=== PATIENT | female | born 1990 | race Caucasian/White ===

== ENCOUNTER 2017-10-16 02:51 | Observation (INO) | payer BC, OTHER ==
[2017-10-16] MEDS ORDERED: Ondansetron 4 MG/2 ML SDV IVPUSH ONE (03:12)
[2017-10-16] MEDS ORDERED: Sodium Chloride 0.9% 1,000 ML IV ONE (03:13)
[2017-10-16] MEDS ORDERED: Alum Hydrox/Mag Hydrox/Simeth 15 ML, Metoclopramide 5 MG, Lidocaine 2% 5 ML PO ONE ×3 (03:15)
[2017-10-16] MEDS ORDERED: Pantoprazole 40 MG Vial IVPUSH ONE (03:16)
[2017-10-16 03:58] LABS: CHLORIDE,CL 108 mmol/L (98-110); SODIUM,NA 143 mmol/L (136-146)
--- NOTE | 2017-10-16 05:59 | EDM.PDOC ---
ED HPI GENERAL MEDICAL PROBLEM - General Chief Complaint: Abdominal Pain Stated Complaint: POSSIBLE BLEEDING ORSER Time Seen by Provider: 10/16/17 05:47 - History of Present Illness INITIAL COMMENTS - FREE TEXT/NARRATIVE: HISTORY AND PHYSICAL: History of present illness: Patient's 26-year-old female presents for concern of vomiting she states she's been vomiting for the last 4-5 days multiple time she states she had 4-5 episodes of coffee-ground material she denies gross blood she denies melena or hematochezia she had abdominal discomfort that's poorly localized. She denies chest pain shortness of breath dizziness or other concern she denies Review of systems: As per history of present illness and below otherwise all systems reviewed and negative. Past medical history: As per history of present illness and as reviewed below otherwise noncontributory. Surgical history: As per history of present illness and as reviewed below otherwise noncontributory. Social history: No reported history of drug or alcohol abuse. Family history: As per history of present illness and as reviewed below otherwise noncontributory. Physical exam: HEENT: Atraumatic, normocephalic, pupils reactive, negative for conjunctival pallor or scleral icterus, mucous membranes dry, throat clear, neck supple, nontender, trachea midline. Lungs: Clear to auscultation, breath sounds equal bilaterally, chest nontender. Heart: S1S2, regular, negative for clicks, rubs, or JVD. Abdomen: Soft, nondistended, nontender. Negative for masses or hepatosplenomegaly. Negative for costovertebral tenderness. Pelvis: Stable nontender. Genitourinary: Deferred. Rectal: Deferred. Extremities: Atraumatic, negative for cords or calf pain. Neurovascular unremarkable. Neuro: Awake, alert, oriented. Cranial nerves II through XII unremarkable. Cerebellum unremarkable. Motor and sensory unremarkable throughout. Exam nonfocal. Diagnostics: CBC CMP PT/INR UA UCG urine drug screen CT abdomen and pelvis Therapeutics: Normal saline 1 L bolus Zofran 4 mg IV Protonix 80 mg IV Impression: #1 hyperemesis #2 gastritis rule out peptic ulcer disease #3 dehydration Definitive disposition and diagnosis as appropriate pending reevaluation and review of above. epigastric Pain Score (Numeric/FACES): 10 - Related Data Allergies Allergy/AdvReac Type Severity Reaction Status Date / Time No Known Allergies Allergy Verified 10/16/17 02:55 Home Meds: Home Meds . [No Known Home Meds] 10/16/17 [History] Past Medical History - Past Health History Medical/Surgical History: Denies Medical/Surgical History Gastrointestinal History: Reports: PUD - Past Surgical History GI Surgical History: Reports: Cholecystectomy Social & Family History - Family History Family Medical History: Noncontributory - Tobacco Use Smoking Status *Q: Current Every Day Smoker Years of Tobacco use: 1 Packs/Tins Daily: 1 - Recreational Drug Use Recreational Drug Use: No ED ROS GENERAL - Review of Systems Review Of Systems: ROS reveals no pertinent complaints other than HPI. ED EXAM, GENERAL - Physical Exam Exam: See Below (See dictation) Course - Vital Signs Last Recorded V/S: Last Vital Signs Temp 36.8 C 10/16/17 02:51 Pulse 114 H 10/16/17 02:51 Resp 24 H 10/16/17 02:51 BP 125/65 10/16/17 02:51 Pulse Ox 99 10/16/17 02:51 - Orders/Labs/Meds Orders: Active Orders 24 hr Category Date Time Status Abdomen Pelvis wo Cont [CT] Stat Exams 10/16/17 05:12 Taken Chest 1V Frontal [CR] Stat Exams 10/16/17 03:15 Taken Labs: Laboratory Tests 10/16/17 10/16/17 10/16/17 Range/Units 03:10 03:10 03:10 WBC 10.08 (4.0-11.0) K/uL RBC 5.00 (4.30-5.90) M/uL Hgb 14.8 (12.0-16.0) g/dL Hct 41.7 (36.0-46.0) % MCV 83.4 (80.0-98.0) fL MCH 29.6 (27.0-32.0) pg MCHC 35.5 (31.0-37.0) g/dL RDW Std Deviation 39.0 (28.0-62.0) fl RDW Coeff of [place] 13 (11.0-15.0) % Plt Count 219 (150-400) K/uL MPV 10.40 (7.40-12.00) fL Neut % (Auto) 77.7 (48.0-80.0) % Lymph % (Auto) 18.2 (16.0-40.0) % [place] % (Auto) 2.5 (0.0-15.0) % Eos % (Auto) 1.5 (0.0-7.0) % Baso % (Auto) 0.1 (0.0-1.5) % Neut # (Auto) 7.8 H (1.4-5.7) K/uL Lymph # (Auto) 1.8 (0.6-2.4) K/uL [place] # (Auto) 0.3 (0.0-0.8) K/uL Eos # (Auto) 0.2 (0.0-0.7) K/uL Baso # (Auto) 0.0 (0.0-0.1) K/uL INR 0.94 Sodium 143 (136-146) mmol/L Potassium 3.1 L (3.5-5.1) mmol/L Chloride 108 (98-110) mmol/L Carbon Dioxide 24 (21-31) mmol/L BUN 15 (6.0-23.0) mg/dL Creatinine 0.9 (0.6-1.5) mg/dL Est Cr Clr Drug Dosing 74.26 mL/min Estimated GFR (MDRD) > 60.0 ml/min Glucose 98 (60-110) mg/dL Calcium 9.4 (8.8-10.8) mg/dL Total Bilirubin 0.8 (0.1-1.5) mg/dL AST 58 H (5-40) IU/L ALT 71 H (8-54) IU/L Alkaline Phosphatase 83 (40-150) Troponin I (0.0-0.29) NG/ML Total Protein 7.7 (6.0-8.0) g/dL Albumin 4.6 (3.5-5.0) g/dL Globulin 3.1 (2.0-3.5) g/dL Albumin/Globulin Ratio 1.5 (1.3-2.8) Lipase (7-80) U/L Urine Color Urine Appearance Urine pH (5.0-8.0) Ur Specific [place] (1.001-1.035) Urine Protein (NEGATIVE) mg/dL Urine Glucose (UA) (NEGATIVE) mg/dL Urine Ketones (NEGATIVE) mg/dL Urine Occult Blood (NEGATIVE) Urine Nitrite (NEGATIVE) Urine Bilirubin (NEGATIVE) Urine Urobilinogen (<2.0) EU/dL Ur Leukocyte Esterase (NEGATIVE) Urine RBC (0-2/HPF) Urine WBC (0-5/HPF) Ur Epithelial Cells (NONE-FEW) Calcium Oxalate Crystal (NEGATIVE) Uric Acid Crystals (NEGATIVE) Amorphous Sediment (NEGATIVE) Urine Bacteria (NEGATIVE) Urine Mucus (NONE-MOD) Urine HCG, Qual (NEGATIVE) Urine Opiates Screen (NEGATIVE) Ur Oxycodone Screen (NEGATIVE) Urine Methadone Screen (NEGATIVE) Ur Barbiturates Screen (NEGATIVE) Ur Phencyclidine Scrn (NEGATIVE) Ur Amphetamine Screen (NEGATIVE) U Methamphetamines Scrn (NEGATIVE) U Benzodiazepines Scrn (NEGATIVE) U Cocaine Metab Screen (NEGATIVE) U Marijuana (THC) Screen (NEGATIVE) 10/16/17 10/16/17 10/16/17 Range/Units 03:10 04:00 04:00 WBC (4.0-11.0) K/uL RBC (4.30-5.90) M/uL Hgb (12.0-16.0) g/dL Hct (36.0-46.0) % MCV (80.0-98.0) fL MCH (27.0-32.0) pg MCHC (31.0-37.0) g/dL RDW Std Deviation (28.0-62.0) fl RDW Coeff of [place] (11.0-15.0) % Plt Count (150-400) K/uL MPV (7.40-12.00) fL Neut % (Auto) (48.0-80.0) % Lymph % (Auto) (16.0-40.0) % [place] % (Auto) (0.0-15.0) % Eos % (Auto) (0.0-7.0) % Baso % (Auto) (0.0-1.5) % Neut # (Auto) (1.4-5.7) K/uL Lymph # (Auto) (0.6-2.4) K/uL [place] # (Auto) (0.0-0.8) K/uL Eos # (Auto) (0.0-0.7) K/uL Baso # (Auto) (0.0-0.1) K/uL INR Sodium (136-146) mmol/L Potassium (3.5-5.1) mmol/L Chloride (98-110) mmol/L Carbon Dioxide (21-31) mmol/L BUN (6.0-23.0) mg/dL Creatinine (0.6-1.5) mg/dL Est Cr Clr Drug Dosing mL/min Estimated GFR (MDRD) ml/min Glucose (60-110) mg/dL Calcium (8.8-10.8) mg/dL Total Bilirubin (0.1-1.5) mg/dL AST (5-40) IU/L ALT (8-54) IU/L Alkaline Phosphatase (40-150) Troponin I < 0.10 (0.0-0.29) NG/ML Total Protein (6.0-8.0) g/dL Albumin (3.5-5.0) g/dL Globulin (2.0-3.5) g/dL Albumin/Globulin Ratio (1.3-2.8) Lipase 50 (7-80) U/L Urine Color Urine Appearance Urine pH (5.0-8.0) Ur Specific [place] (1.001-1.035) Urine Protein (NEGATIVE) mg/dL Urine Glucose (UA) (NEGATIVE) mg/dL Urine Ketones (NEGATIVE) mg/dL Urine Occult Blood (NEGATIVE) Urine Nitrite (NEGATIVE) Urine Bilirubin (NEGATIVE) Urine Urobilinogen (<2.0) EU/dL Ur Leukocyte Esterase (NEGATIVE) Urine RBC (0-2/HPF) Urine WBC (0-5/HPF) Ur Epithelial Cells (NONE-FEW) Calcium Oxalate Crystal (NEGATIVE) Uric Acid Crystals (NEGATIVE) Amorphous Sediment (NEGATIVE) Urine Bacteria (NEGATIVE) Urine Mucus (NONE-MOD) Urine HCG, Qual NEGATIVE (NEGATIVE) Urine Opiates Screen NEGATIVE (NEGATIVE) Ur Oxycodone Screen NEGATIVE (NEGATIVE) Urine Methadone Screen NEGATIVE (NEGATIVE) Ur Barbiturates Screen NEGATIVE (NEGATIVE) Ur Phencyclidine Scrn NEGATIVE (NEGATIVE) Ur Amphetamine Screen NEGATIVE (NEGATIVE) U Methamphetamines Scrn NEGATIVE (NEGATIVE) U Benzodiazepines Scrn NEGATIVE (NEGATIVE) U Cocaine Metab Screen NEGATIVE (NEGATIVE) U Marijuana (THC) Screen NEGATIVE (NEGATIVE) 10/16/17 Range/Units 04:08 WBC (4.0-11.0) K/uL RBC (4.30-5.90) M/uL Hgb (12.0-16.0) g/dL Hct (36.0-46.0) % MCV (80.0-98.0) fL MCH (27.0-32.0) pg MCHC (31.0-37.0) g/dL RDW Std Deviation (28.0-62.0) fl RDW Coeff of [place] (11.0-15.0) % Plt Count (150-400) K/uL MPV (7.40-12.00) fL Neut % (Auto) (48.0-80.0) % Lymph % (Auto) (16.0-40.0) % [place] % (Auto) (0.0-15.0) % Eos % (Auto) (0.0-7.0) % Baso % (Auto) (0.0-1.5) % Neut # (Auto) (1.4-5.7) K/uL Lymph # (Auto) (0.6-2.4) K/uL [place] # (Auto) (0.0-0.8) K/uL Eos # (Auto) (0.0-0.7) K/uL Baso # (Auto) (0.0-0.1) K/uL INR Sodium (136-146) mmol/L Potassium (3.5-5.1) mmol/L Chloride (98-110) mmol/L Carbon Dioxide (21-31) mmol/L BUN (6.0-23.0) mg/dL Creatinine (0.6-1.5) mg/dL Est Cr Clr Drug Dosing mL/min Estimated GFR (MDRD) ml/min Glucose (60-110) mg/dL Calcium (8.8-10.8) mg/dL Total Bilirubin (0.1-1.5) mg/dL AST (5-40) IU/L ALT (8-54) IU/L Alkaline Phosphatase (40-150) Troponin I (0.0-0.29) NG/ML Total Protein (6.0-8.0) g/dL Albumin (3.5-5.0) g/dL Globulin (2.0-3.5) g/dL Albumin/Globulin Ratio (1.3-2.8) Lipase (7-80) U/L Urine Color YELLOW Urine Appearance CLEAR Urine pH 6.0 (5.0-8.0) Ur Specific [place] >= 1.030 (1.001-1.035) Urine Protein NEGATIVE (NEGATIVE) mg/dL Urine Glucose (UA) NEGATIVE (NEGATIVE) mg/dL Urine Ketones NEGATIVE (NEGATIVE) mg/dL Urine Occult Blood NEGATIVE (NEGATIVE) Urine Nitrite NEGATIVE (NEGATIVE) Urine Bilirubin SMALL H (NEGATIVE) Urine Urobilinogen 1.0 (<2.0) EU/dL Ur Leukocyte Esterase NEGATIVE (NEGATIVE) Urine RBC 0-2 (0-2/HPF) Urine WBC 2-4 (0-5/HPF) Ur Epithelial Cells FEW (NONE-FEW) Calcium Oxalate Crystal RARE (NEGATIVE) Uric Acid Crystals (NEGATIVE) Amorphous Sediment FEW (NEGATIVE) Urine Bacteria FEW (NEGATIVE) Urine Mucus FEW (NONE-MOD) Urine HCG, Qual (NEGATIVE) Urine Opiates Screen (NEGATIVE) Ur Oxycodone Screen (NEGATIVE) Urine Methadone Screen (NEGATIVE) Ur Barbiturates Screen (NEGATIVE) Ur Phencyclidine Scrn (NEGATIVE) Ur Amphetamine Screen (NEGATIVE) U Methamphetamines Scrn (NEGATIVE) U Benzodiazepines Scrn (NEGATIVE) U Cocaine Metab Screen (NEGATIVE) U Marijuana (THC) Screen (NEGATIVE) Meds: Medications Discontinued Medications Generic Name Dose Route Start Last Admin Trade Name Pramodq PRN Reason Stop Dose Admin Al Hydroxide/Mg Hydroxide 15 0 ml 10/16/17 03:15 10/16/17 03:25 ml/ Metoclopramide HCl 5 mg/ PO 10/16/17 03:16 25 each Lidocaine HCl 5 ml ONETIME ONE Administration Sodium Chloride 1,000 mls @ 999 mls/hr 10/16/17 03:13 10/16/17 03:00 Normal Saline IV 10/16/17 04:13 999 mls/hr STAT ONE Administration Ondansetron HCl 4 mg 10/16/17 03:12 10/16/17 03:17 Zofran IVPUSH 10/16/17 03:13 4 mg ONETIME ONE Administration Pantoprazole Sodium 80 mg 10/16/17 03:16 10/16/17 03:30 Protonix Iv IVPUSH 10/16/17 03:17 80 mg .BOLUS ONE Administration Departure - Departure Time of Disposition: 05:58 Disposition: Refer to Observation Condition: Good Clinical Impression: Vomiting, Dehydration, Gastritis - Discharge Information Referrals: PCP,None [Primary Care Provider] - - My Orders Last 24 Hours: My Active Orders 10/16/17 03:15 Chest 1V Frontal [CR] Stat 10/16/17 05:12 Abdomen Pelvis wo Cont [CT] Stat - Assessment/Plan Last 24 Hours: My Active Orders 10/16/17 03:15 Chest 1V Frontal [CR] Stat 10/16/17 05:12 Abdomen Pelvis wo Cont [CT] Stat
[2017-10-16] MEDS ORDERED: Pantoprazole 80 MG in Sodium Chloride 0.9% 100 ML IV SCH (06:00)
[2017-10-16] MEDS ORDERED: Potassium Chloride 40 MEQ in Sodium Chloride 0.9% 480 ML IV ONE (06:49)
[2017-10-16] MEDS ORDERED: Promethazine 25 MG/ML SDV IM PRN (06:49)
[2017-10-16] MEDS: Morphine 2 MG/ML Syringe IVPUSH PRN ×2 (07:43→21:03)
[2017-10-16] MEDS: Ondansetron 4 MG/2 ML SDV IVPUSH PRN ×3 (08:02→21:02)
[2017-10-16] MEDS ORDERED: Sodium Chloride 0.9% with KCl 1,000 ML IV ONE ×3 (09:17→17:00)
--- NOTE | 2017-10-16 12:29 | PCM.HP ---
H&P History of Present Illness - General Admit Problem/Dx: Admission Diagnosis/Problem Admission Diagnosis/Problem Vomiting - History of Present Illness Initial Comments - Free Text/Narative: 26 yo female with pmh of gastric ulcers who presents with epigastric abdominal pain, nausea and vomiting. She reports some dark stools yesterday. She denies any fevers, or chills epigastric Pain Score (Numeric/FACES): 8 - Related Data Allergies/Adverse Reactions: Allergies Allergy/AdvReac Type Severity Reaction Status Date / Time Penicillins Allergy Hives Verified 10/16/17 08:12 Home Medications: Home Meds Pantoprazole Sodium [Protonix] 40 mg PO DAILY 30 Days #30 tablet. 10/17/17 [Rx ] Sucralfate [Carafate] 1 gm PO Q6HR 30 Days #120 tablet 10/17/17 [Rx] Past Medical History - Past Health History Medical/Surgical History: Denies Medical/Surgical History Gastrointestinal History: Reports: [employer] History: Reports: Other OB/BYN History: x2 - Infectious Disease History Infectious Disease History: Reports: Chicken Pox - Past Surgical History Head Surgeries/Procedures: Reports: None GI Surgical History: Reports: Appendectomy, Cholecystectomy Social & Family History - Family History Family Medical History: Noncontributory - Tobacco Use Smoking Status *Q: Current Every Day Smoker Years of Tobacco use: 1 Packs/Tins Daily: 0.2 Second Hand Smoke Exposure: No - Caffeine Use Caffeine Use: Reports: Coffee, Energy Drinks, Soda, Tea - Recreational Drug Use Recreational Drug Use: No H&P Review of Systems - Review of Systems: Review Of Systems: ROS reveals no pertinent complaints other than HPI. Exam - Exam Exam: See Below - Vital Signs Vital Signs: Last Vital Signs Temp 36.6 C 10/16/17 08:17 Pulse 95 10/16/17 08:17 Resp 12 10/16/17 08:17 BP 99/61 10/16/17 08:17 Pulse Ox 99 10/16/17 08:17 Weight: 74.979 kg - Exam General: Alert, Oriented HEENT: Mucosa Moist & [place] Lungs: Clear to Auscultation, Normal Respiratory Effort Cardiovascular: Regular Rate, Regular Rhythm GI/Abdominal Exam: Soft, Non-Tender Extremities: No Pedal Edema Skin: Warm, Dry, Intact - Patient Data Result Diagrams: 10/17/17 05:18 10/17/17 05:18 *Q Meaningful Use (ADM) - VTE *Q VTE Criteria *Q: - Stroke *Q Stroke Criteria *Q: - AMI *Q AMI Criteria *Q: Problem List Initiated/Reviewed/Updated: Yes Orders Last 24hrs: Active Orders 24 hr Category Date Time Status Antiembolic Devices [RC] PER UNIT ROUTINE Care 10/16/17 12:23 Ordered Intake and Output [RC] QSHIFT Care 10/16/17 12:23 Ordered Oxygen Therapy [RC] PRN Care 10/16/17 12:23 Ordered Up ad Lizzette [RC] ASDIRECTED Care 10/16/17 12:23 Ordered VTE/DVT Education [RC] PER UNIT ROUTINE Care 10/16/17 12:23 Ordered Vital Signs [RC] Q4H Care 10/16/17 12:23 Ordered Advance Diet Instructions [DIET] Diet 10/16/17 Dinner Ordered Nothing per Oral Now Diet [DIET] Diet 10/16/17 Lunch Active CBC WITH AUTO DIFF [HEME] AM Lab 10/17/17 05:11 Ordered COMPREHENSIVE METABOLIC PN,CMP [CHEM] AM Lab 10/17/17 05:11 Ordered Morphine Med 10/16/17 06:49 Active 2 mg IVPUSH Q3H PRN Ondansetron [Zofran] Med 10/16/17 06:49 Active 4 mg IVPUSH Q4H PRN Promethazine [Phenergan] Med 10/16/17 06:49 Active 25 mg IM Q6H PRN Sodium Chloride 0.9% with KCl [Normal Saline with 40 Med 10/16/17 09:17 Active mEq KCl] 1,000 ml IV ONETIME Sodium Chloride 0.9% with KCl [Normal Saline with 40 Med 10/16/17 17:00 Active mEq KCl] 1,000 ml IV ONETIME Sequential Compression Device [OM.PC] Per Unit Routine Oth 10/16/17 12:23 Ordered Resuscitation Status Routine Resus Stat 10/16/17 12:23 Ordered Medication Orders Pantoprazole Sodium 80 mg/ (Sodium Chloride) 100 mls @ 10 mls/hr IV .Continuous ALICIA Last Admin: 10/16/17 07:49 Dose: 10 mls/hr Potassium Chloride/Sodium Chloride (Normal Saline With 40 Meq Kcl) 1,000 mls @ 125 mls/hr IV ONETIME ONE Stop: 10/16/17 17:16 Last Admin: 10/16/17 09:57 Dose: 125 mls/hr Potassium Chloride/Sodium Chloride (Normal Saline With 40 Meq Kcl) 1,000 mls @ 125 mls/hr IV ONETIME ONE Stop: 10/17/17 00:59 Morphine Sulfate (Morphine) 2 mg IVPUSH Q3H PRN PRN Reason: Pain Last Admin: 10/16/17 07:43 Dose: 2 mg Ondansetron HCl (Zofran) 4 mg IVPUSH Q4H PRN PRN Reason: Nausea/Vomiting Last Admin: 10/16/17 08:02 Dose: 4 mg Promethazine HCl (Phenergan) 25 mg IM Q6H PRN PRN Reason: Nausea/Vomiting Assessment/Plan Comment:: 26 yo female presenting with signs and symptoms concerning for gastric ulcer. She has been started on a protonix drip. Patient is requesting discharge. I advised patien that we need to ensuring she is tolerating an oral diet before discharge. We will advance diet as tolerated.
[2017-10-16] MEDS: Sucralfate Suspension 1 GM/10 ML Cup PO SCH ×2 (13:02→18:12)
[2017-10-16] MEDS: Pantoprazole 40 MG Vial IV SCH (16:20)
[2017-10-16] MEDS ORDERED: Acetaminophen 325 MG Tab PO PRN (17:59)
[2017-10-17] MEDS: Sucralfate Suspension 1 GM/10 ML Cup PO SCH ×3 (02:01→13:33)
[2017-10-17] MEDS: Morphine 2 MG/ML Syringe IVPUSH PRN ×2 (02:01→07:30)
[2017-10-17] MEDS: Ondansetron 4 MG/2 ML SDV IVPUSH PRN ×2 (02:02→07:30)
[2017-10-17] MEDS: Pantoprazole 40 MG Vial IV SCH (03:40)
[2017-10-17 05:58] LABS: CHLORIDE,CL 115 mmol/L (98-110); SODIUM,NA 139 mmol/L (136-146)
--- NOTE | 2017-10-17 11:30 | PCM.DCSUM1 ---
<Gaurang Horta Z - Last Filed: 10/20/17 23:21> Discharge Summary - Hospital Course HPI Initial Comments: Discharge Summary Date of admission: 10/16/17 Date of discharge: 10/17/17 Admitting diagnosis: #1. Nausea/vomiting, abdominal pain, inability to tolerate diet secondary to likely peptic ulcer disease #2. Past medical history significant for peptic ulcer disease #3. #4. #5. Discharge diagnoses: #1. Nausea/vomiting, abdominal pain resolving, secondary likely to peptic ulcer disease #2. Mild elevation of LFTs likely secondary to peptic ulcer disease #3. #4. #5. Consultations: None Procedures: None Hospitalization course: Patient was admitted secondary to nausea, vomiting, abdominal pain, inability to tolerate by mouth intake. Patient was put on a PPI drip, and given IV Carafate and diet was progressed as tolerated. Patient's symptoms are controlled with Zofran. Patient did well overnight, was able to tolerate her progression and diet. Patient was no longer nauseous was able to have a regular diet without too much discomfort. Patient was then determined stable enough to be discharged on Protonix 40 mg daily and Carafate every 6 hours for 30 days. Have her follow-up assessment with Dr. Godfrey Damon for a possible EGD and establish care with a primary care physician. Disposition on discharge: Home Condition on discharge: Stable Discharge medications: Protonix 40 mg daily, Carafate every 6 hours for 30 days Follow-up instructions: Follow-up assessment with Dr. Godfrey Dmaon for possible EGD, establish care with primary care physician. - Discharge Data Discharge Date: 10/17/17 Discharge Disposition: Home, Self-Care 01 Condition: Good - Patient Instructions Diet: Usual Diet as Tolerated Activity: As Tolerated Driving: Do Not Drive Showering/Bathing: May Shower - Discharge Plan Prescriptions/Med Rec: Sucralfate [Carafate] 1 gm PO Q6HR 30 Days #120 tablet Pantoprazole Sodium [Protonix] 40 mg PO DAILY 30 Days #30 tablet. Home Medications: Home Meds Pantoprazole Sodium [Protonix] 40 mg PO DAILY 30 Days #30 tablet. 10/17/17 [Rx ] Sucralfate [Carafate] 1 gm PO Q6HR 30 Days #120 tablet 10/17/17 [Rx] Patient Handouts: Abdominal Pain, Adult, [id number], Sucralfate tablets, Pantoprazole tablets Referrals: Godfrey Damon MD [Physician] - 11/01/17 2:15 pm Gaurang Horta MD [Resident] - 11/04/17 2:30 pm - Discharge Summary/Plan Comment DC Time >30 min.: No - Patient Data Vitals - Most Recent: Last Vital Signs Temp 36.8 C 10/17/17 08:00 Pulse 74 10/17/17 08:00 Resp 16 10/17/17 08:00 BP 111/72 10/17/17 08:00 Pulse Ox 97 10/17/17 08:00 Weight - Most Recent: 74.979 kg I&O - Last 24 hours: Intake & Output 10/16/17 10/17/17 10/17/17 22:59 06:59 14:59 Intake Total 2033 1200 Output Total 300 1050 Balance 1733 150 Lab Results - Last 24 hrs: Laboratory Results - last 24 hr 10/16/17 10/17/17 10/17/17 Range/Units 17:10 05:18 05:18 WBC 6.55 (4.0-11.0) K/uL RBC 4.20 L (4.30-5.90) M/uL Hgb 12.6 12.4 (12.0-16.0) g/dL Hct 35.2 L (36.0-46.0) % MCV 83.8 (80.0-98.0) fL MCH 29.5 (27.0-32.0) pg MCHC 35.2 (31.0-37.0) g/dL RDW Std Deviation 39.9 (28.0-62.0) fl RDW Coeff of Clayton 13 (11.0-15.0) % Plt Count 169 (150-400) K/uL MPV 10.10 (7.40-12.00) fL Neut % (Auto) 52.8 (48.0-80.0) % Lymph % (Auto) 36.8 (16.0-40.0) % Coles % (Auto) 5.8 (0.0-15.0) % Eos % (Auto) 4.3 (0.0-7.0) % Baso % (Auto) 0.3 (0.0-1.5) % Neut # (Auto) 3.5 (1.4-5.7) K/uL Lymph # (Auto) 2.4 (0.6-2.4) K/uL Coles # (Auto) 0.4 (0.0-0.8) K/uL Eos # (Auto) 0.3 (0.0-0.7) K/uL Baso # (Auto) 0.0 (0.0-0.1) K/uL Nucleated RBC % 0.0 /100WBC Nucleated RBCs # 0 K/uL Sodium 139 (136-146) mmol/L Potassium 3.7 (3.5-5.1) mmol/L Chloride 115 H (98-110) mmol/L Carbon Dioxide 20 L (21-31) mmol/L BUN 6 (6.0-23.0) mg/dL Creatinine 0.8 (0.6-1.5) mg/dL Est Cr Clr Drug Dosing 83.54 mL/min Estimated GFR (MDRD) > 60.0 ml/min Glucose 89 (60-110) mg/dL Calcium 8.1 L (8.8-10.8) mg/dL Total Bilirubin 0.7 (0.1-1.5) mg/dL AST 213 H (5-40) IU/L ALT 336 H (8-54) IU/L Alkaline Phosphatase 91 (40-150) Total Protein 5.3 L (6.0-8.0) g/dL Albumin 3.3 L (3.5-5.0) g/dL Globulin 2.0 (2.0-3.5) g/dL Albumin/Globulin Ratio 1.7 (1.3-2.8) Amylase (10-90) U/L Lipase (7-80) U/L 10/17/17 Range/Units 05:18 WBC (4.0-11.0) K/uL RBC (4.30-5.90) M/uL Hgb (12.0-16.0) g/dL Hct (36.0-46.0) % MCV (80.0-98.0) fL MCH (27.0-32.0) pg MCHC (31.0-37.0) g/dL RDW Std Deviation (28.0-62.0) fl RDW Coeff of Clayton (11.0-15.0) % Plt Count (150-400) K/uL MPV (7.40-12.00) fL Neut % (Auto) (48.0-80.0) % Lymph % (Auto) (16.0-40.0) % Coles % (Auto) (0.0-15.0) % Eos % (Auto) (0.0-7.0) % Baso % (Auto) (0.0-1.5) % Neut # (Auto) (1.4-5.7) K/uL Lymph # (Auto) (0.6-2.4) K/uL Coles # (Auto) (0.0-0.8) K/uL Eos # (Auto) (0.0-0.7) K/uL Baso # (Auto) (0.0-0.1) K/uL Nucleated RBC % /100WBC Nucleated RBCs # K/uL Sodium (136-146) mmol/L Potassium (3.5-5.1) mmol/L Chloride (98-110) mmol/L Carbon Dioxide (21-31) mmol/L BUN (6.0-23.0) mg/dL Creatinine (0.6-1.5) mg/dL Est Cr Clr Drug Dosing mL/min Estimated GFR (MDRD) ml/min Glucose (60-110) mg/dL Calcium (8.8-10.8) mg/dL Total Bilirubin (0.1-1.5) mg/dL AST (5-40) IU/L ALT (8-54) IU/L Alkaline Phosphatase (40-150) Total Protein (6.0-8.0) g/dL Albumin (3.5-5.0) g/dL Globulin (2.0-3.5) g/dL Albumin/Globulin Ratio (1.3-2.8) Amylase 35 (10-90) U/L Lipase 23 (7-80) U/L MER Results - Last 24 hrs: Microbiology 10/16/17 19:30 Stool Occult Blood (MER) - Final Stool / Feces NEGATIVE OCCULT BLOOD Med Orders - Current: Current Medications Acetaminophen (Tylenol) 650 mg PO Q6H PRN PRN Reason: Pain Last Admin: 10/16/17 18:12 Dose: 650 mg Morphine Sulfate (Morphine) 2 mg IVPUSH Q3H PRN PRN Reason: Pain Last Admin: 10/17/17 07:30 Dose: 2 mg Ondansetron HCl (Zofran) 4 mg IVPUSH Q4H PRN PRN Reason: Nausea/Vomiting Last Admin: 10/17/17 07:30 Dose: 4 mg Pantoprazole Sodium (Protonix Iv) 80 mg IV Q12H ALICIA Last Admin: 10/17/17 03:40 Dose: 80 mg Promethazine HCl (Phenergan) 25 mg IM Q6H PRN PRN Reason: Nausea/Vomiting Sucralfate (Carafate) 1 gm PO Q6H ALICIA Last Admin: 10/17/17 06:48 Dose: 1 gm Discontinued Medications Al Hydroxide/Mg Hydroxide 15 ml/ Metoclopramide HCl 5 mg/Lidocaine HCl 5 ml 0 ml PO ONETIME ONE Stop: 10/16/17 03:16 Last Admin: 10/16/17 03:25 Dose: 25 each Sodium Chloride (Normal Saline) 1,000 mls @ 999 mls/hr IV STAT ONE Stop: 10/16/17 04:13 Last Admin: 10/16/17 03:00 Dose: 999 mls/hr Pantoprazole Sodium 80 mg/ (Sodium Chloride) 100 mls @ 10 mls/hr IV .Continuous ALICIA Last Admin: 10/16/17 07:49 Dose: 10 mls/hr Potassium Chloride 40 meq/ (Sodium Chloride) 500 mls @ 125 mls/hr IV ONETIME ONE Stop: 10/16/17 10:48 Last Admin: 10/16/17 07:36 Dose: Not Given Potassium Chloride 40 meq/ (Sodium Chloride) 1,020 mls @ 125 mls/hr IV ONETIME ONE Stop: 10/16/17 15:41 Last Admin: 10/16/17 09:44 Dose: Not Given Potassium Chloride/Sodium Chloride (Normal Saline With 40 Meq Kcl) 1,000 mls @ 125 mls/hr IV ONETIME ONE Stop: 10/16/17 17:16 Last Admin: 10/16/17 09:57 Dose: 125 mls/hr Potassium Chloride/Sodium Chloride (Normal Saline With 40 Meq Kcl) 1,000 mls @ 125 mls/hr IV ONETIME ONE Stop: 10/17/17 00:59 Last Admin: 10/16/17 17:51 Dose: 125 mls/hr Ondansetron HCl (Zofran) 4 mg IVPUSH ONETIME ONE Stop: 10/16/17 03:13 Last Admin: 10/16/17 03:17 Dose: 4 mg Pantoprazole Sodium (Protonix Iv) 80 mg IVPUSH .BOLUS ONE Stop: 10/16/17 03:17 Last Admin: 10/16/17 03:30 Dose: 80 mg *Q Meaningful Use (DIS) - VTE *Q VTE Criteria *Q: - Stroke *Q Stroke Criteria *Q: - AMI *Q AMI Criteria *Q: <Bartolo Coker - Last Filed: 11/02/17 10:56> - Patient Data Vitals - Most Recent: Last Vital Signs Temp 36.8 C 10/17/17 08:00 Pulse 74 10/17/17 08:00 Resp 16 10/17/17 08:00 BP 111/72 10/17/17 08:00 Pulse Ox 97 10/17/17 08:00 Med Orders - Current: Current Medications Discontinued Medications Acetaminophen (Tylenol) 650 mg PO Q6H PRN PRN Reason: Pain Last Admin: 10/16/17 18:12 Dose: 650 mg Al Hydroxide/Mg Hydroxide 15 ml/ Metoclopramide HCl 5 mg/Lidocaine HCl 5 ml 0 ml PO ONETIME ONE Stop: 10/16/17 03:16 Last Admin: 10/16/17 03:25 Dose: 25 each Sodium Chloride (Normal Saline) 1,000 mls @ 999 mls/hr IV STAT ONE Stop: 10/16/17 04:13 Last Admin: 10/16/17 03:00 Dose: 999 mls/hr Pantoprazole Sodium 80 mg/ (Sodium Chloride) 100 mls @ 10 mls/hr IV .Continuous ALICIA Last Admin: 10/16/17 07:49 Dose: 10 mls/hr Potassium Chloride 40 meq/ (Sodium Chloride) 500 mls @ 125 mls/hr IV ONETIME ONE Stop: 10/16/17 10:48 Last Admin: 10/16/17 07:36 Dose: Not Given Potassium Chloride 40 meq/ (Sodium Chloride) 1,020 mls @ 125 mls/hr IV ONETIME ONE Stop: 10/16/17 15:41 Last Admin: 10/16/17 09:44 Dose: Not Given Potassium Chloride/Sodium Chloride (Normal Saline With 40 Meq Kcl) 1,000 mls @ 125 mls/hr IV ONETIME ONE Stop: 10/16/17 17:16 Last Admin: 10/16/17 09:57 Dose: 125 mls/hr Potassium Chloride/Sodium Chloride (Normal Saline With 40 Meq Kcl) 1,000 mls @ 125 mls/hr IV ONETIME ONE Stop: 10/17/17 00:59 Last Admin: 10/16/17 17:51 Dose: 125 mls/hr Morphine Sulfate (Morphine) 2 mg IVPUSH Q3H PRN PRN Reason: Pain Last Admin: 10/17/17 07:30 Dose: 2 mg Ondansetron HCl (Zofran) 4 mg IVPUSH ONETIME ONE Stop: 10/16/17 03:13 Last Admin: 10/16/17 03:17 Dose: 4 mg Ondansetron HCl (Zofran) 4 mg IVPUSH Q4H PRN PRN Reason: Nausea/Vomiting Last Admin: 10/17/17 07:30 Dose: 4 mg Pantoprazole Sodium (Protonix Iv) 80 mg IVPUSH .BOLUS ONE Stop: 10/16/17 03:17 Last Admin: 10/16/17 03:30 Dose: 80 mg Pantoprazole Sodium (Protonix Iv) 80 mg IV Q12H ALICIA Last Admin: 10/17/17 03:40 Dose: 80 mg Promethazine HCl (Phenergan) 25 mg IM Q6H PRN PRN Reason: Nausea/Vomiting Sucralfate (Carafate) 1 gm PO Q6H ALICIA Last Admin: 10/17/17 13:33 Dose: Not Given *Q Meaningful Use (DIS) - VTE *Q VTE Criteria *Q: - Stroke *Q Stroke Criteria *Q: - AMI *Q AMI Criteria *Q: - Free Text/Narrative Note: I have examined the patient. I have discussed findings and treatment plan with the resident. I agree with the assessment and plan outlined in the following resident's note.
--- NOTE | 2017-10-17 18:12 | CR ---
EXAM DATE: 10/16/17 PATIENT'S AGE: 26 Patient: CHIKA DE LA FUENTE Facility: [place], [place] Site . Site : 1990 Study: XRay Chest [id number]/18/2018 4:32:36 AM Ordering Physician: Doctor Mullins Final Report: INDICATION: Abdominal pain, epigastic TECHNIQUE: Chest radiograph 1 view COMPARISON: None FINDINGS: Mediastinum: The heart silhouette is normal in size and morphology. The mediastinum is normal in appearance. Lungs: Both lungs are unremarkable in appearance. No sign of pleural effusion seen. No pneumothorax is identified. Bones and soft tissue: Unremarkable for age. IMPRESSION: 1. No acute cardiopulmonary disease is seen. Dictated by: Rajeev Kelly MD @ 10/16/2017 04:35:06 (Electronic Signature) Report Signed by Proxy. [email or web address]
--- NOTE | 2017-10-17 18:13 | CT ---
EXAM DATE: 10/16/17 PATIENT'S AGE: 26 Patient: CHIKA DE LA FUENTE Facility: [place], [place] Site . Site : 1990 Study: CT Abdomen/Pelvis WO CONT [id number]/18/2018 5:29:53 AM Ordering Physician: Doctor Mullins Final Report: INDICATION: Epigastric region, abdominal pain TECHNIQUE: CT Abdomen and pelvis without i.v. contrast. Coronal and sagittal reformats were obtained. CONTRAST: None COMPARISON: None FINDINGS: Lower chest: Unremarkable. Liver: Unremarkable. Spleen: Unremarkable. Pancreas: Unremarkable. Gallbladder: Previous cholecystectomy noted without significant intra- or extrahepatic biliary ductal dilatation seen. Kidney: There is a 2 mm stone present in the right lower pole. The left kidney and both ureters are unremarkable in appearance. Adrenal: Unremarkable. Bowel: Mild fluid distention of the cecum is present measuring 5 cm with no definite obstructing lesion seen. The appendix is not visualized and likely surgically absent. Vascular: Unremarkable. Lymph: Unremarkable. Peritoneum: Unremarkable. No pneumoperitoneum is seen. No significant ascites is noted. Pelvis: Unremarkable. Soft tissue: Unremarkable. Bone: Unremarkable for age. IMPRESSIONS: 1. There is a 2 mm stone present in the right lower pole. 2. Mild fluid distention of the cecum is present measuring 5 cm with no definite obstructing lesion seen. Dictated by Rajeev Kelly MD @ 10/16/2017 5:36:57 AM Dictated by: Rajeev Kelly MD @ 10/16/2017 05:37:09 (Electronic Signature) Report Signed by Proxy. PETER
== END 2017-10-17 12:15 | disposition home or self-care (01) ==
LOC: MW.ED 02:51 → MW.MS 06:00
PROVIDERS: ADMIT Internal Medicine; ATTEND Internal Medicine
DX: R10.13 Epigastric pain (principal); R11.2 Nausea with vomiting, unspecified; R94.5 Abnormal results of liver function studies; F17.210 Nicotine dependence, cigarettes, uncomplicated; Z79.899 Other long term (current) drug therapy; Z88.0 Allergy status to penicillin; Z90.49 Acquired absence of other specified parts of digestive tract
CPT/HCPCS: 36415; 71045; 74176; 80053; 80305; 81001; 81025; 82150; 82272; 83690; 84484; 85018; 85025; 85610; 86677; 87338; 87804; 93005; 96361; 96365; 96366; 96375; 96376; 99285; A9270; C9113; G0378; J2270; J2405; J3480; J7030; J7040; 96374; 99284

== ENCOUNTER 2017-11-09 08:48 | Day surgery (SDC) | payer BC ==
[~2017-11-09 08:48] MED LIST: Lactated Ringers 1,000 ML IV SCH; Lidocaine 2% 5 ML SDV ONE; Midazolam 1 MG/ML 2 ML SDV ONE; Propofol 200 MG/20 ML SDV ONE; fentaNYL 100 MCG/2 ML SDV ONE
--- NOTE | 2017-11-09 09:45 | PCM.PREANE ---
Preanesthetic Assessment - Anesthesia/Transfusion/Family Hx Anesthesia History: Prior Anesthesia Without Reaction Family History of Anesthesia Reaction: No Transfusion History: No Prior Transfusion(s) - Review of Systems General: No Symptoms Pulmonary: No Symptoms Cardiovascular: No Symptoms Neurological: No Symptoms Other: Reports: None - Physical Assessment NPO Status Date: 11/08/17 NPO Status Time: 22:00 Height: 1.57 m Weight: 73.936 kg ASA Class: 2 Mental Status: Alert & Oriented x3 Airway Class: Mallampati = 1 Dentition: Reports: Normal Dentition ROM/Head Extension: Full Lungs: Clear to Auscultation, Normal Respiratory Effort Cardiovascular: Regular Rate, Regular Rhythm - Lab Values: Laboratory Last Values Urine HCG, Qual NEGATIVE (NEGATIVE) 11/09/17 09:00 - Allergies Allergies/Adverse Reactions: Allergies Allergy/AdvReac Type Severity Reaction Status Date / Time Penicillins Allergy Hives Verified 11/04/17 10:29 - Anesthesia Plan Pre-Op Medication Ordered: None - Acknowledgements Anesthesia Type Planned: MAC Pt an Appropriate Candidate for the Planned Anesthesia: Yes Alternatives and Risks of Anesthesia Discussed w Pt/Guardian: Yes Pt/Guardian Understands and Agrees with Anesthesia Plan: Yes PreAnesthesia Questionnaire - Past Health History Medical/Surgical History: Denies Medical/Surgical History HEENT History: Reports: Other (See Below) Other HEENT History: wears glasses/contacts Cardiovascular History: Reports: Heart Murmur, Other (See Below) Other Cardiovascular History: murmur as a child Gastrointestinal History: Reports: PUD Genitourinary History: Reports: Renal Calculus 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 OB/BYN History: x2 Musculoskeletal History: Reports: Fracture Other Musculoskeletal History: hx fx arm - Infectious Disease History Infectious Disease History: Reports: Chicken Pox - Past Surgical History Head Surgeries/Procedures: Reports: None HEENT Surgical History: Reports: None Cardiovascular Surgical History: Reports: None GI Surgical History: Reports: Appendectomy, Cholecystectomy, EGD Female Surgical History: Reports: Section - SUBSTANCE USE Smoking Status *Q: Current Every Day Smoker Tobacco Use Within Last Twelve Months: Cigarettes Second Hand Smoke Exposure: No Recreational Drug Use History: No - HOME MEDS Home Medications: Home Meds Pantoprazole Sodium [Protonix] 40 mg PO DAILY 30 Days #30 tablet 10/17/17 [Rx ] Sucralfate [Carafate] 1 gm PO QID 11/04/17 [History] - CURRENT (IN HOUSE) MEDS Current Meds: Current Medications Lactated Ringer's (Ringers, Lactated) 1,000 mls @ 125 mls/hr IV ASDIRECTED ALICIA Last Admin: 11/09/17 09:14 Dose: 125 mls/hr Discontinued Medications Fentanyl (Sublimaze) Confirm Administered Dose 100 mcg .ROUTE .STK-MED ONE Stop: 11/09/17 07:14 Lidocaine (Xylocaine-Mpf 2%) Confirm Administered Dose 5 ml .ROUTE .STK-MED ONE Stop: 11/09/17 07:14 Midazolam HCl (Versed 1 Mg/Ml) Confirm Administered Dose 2 mg .ROUTE .STK-MED ONE Stop: 11/09/17 07:14 Propofol (Diprivan 20 Ml) Confirm Administered Dose 400 mg .ROUTE .STK-MED ONE Stop: 11/09/17 07:14
[2017-11-09] MEDS ORDERED: Ondansetron 4 MG Tab.DIS PO PRN (10:50)
--- NOTE | 2017-11-09 10:51 | PCM.OPNOTE ---
- General Post-Op/Procedure Note Date of Surgery/Procedure: 11/09/17 Operative Procedure(s): EGD w/ biopsy Pre Op Diagnosis: Progressive heartburn. Coffee-ground emesis. Post-Op Diagnosis: Mild gastritis. No acute ulcerations. Anesthesia Technique: MAC (ASA II) Primary Surgeon: Godfrey Damon Geriatric Nurse: Sb Dia Condition: Good Free Text/Narrative:: Dictation [id number] CPT CODE [id number]
[2017-11-09] MEDS ORDERED: Lactated Ringers 1,000 ML IV SCH (11:00)
--- NOTE | 2017-11-09 11:21 | PCM.POSTAN ---
POST ANESTHESIA ASSESSMENT - MENTAL STATUS Mental Status: Alert, Oriented - RESPIRATORY Respiratory Status: Respiratory Rate WNL, Airway Patent, O2 Saturation Stable - CARDIOVASCULAR CV Status: Pulse Rate WNL, Blood Pressure Stable - GASTROINTESTINAL GI Status: No Symptoms - POST OP HYDRATION Hydration Status: Adequate & Stable
--- NOTE | 2017-11-09 11:22 | PCM48HPAN ---
Post Anesthesia Note - EVALUATION WITHIN 48HRS OF ANESTHETIC Vital Signs in Normal Range: Yes Patient Participated in Evaluation: Yes Respiratory Function Stable: Yes Airway Patent: Yes Cardiovascular Function Stable: Yes Hydration Status Stable: Yes Pain Control Satisfactory: Yes Nausea and Vomiting Control Satisfactory: Yes Mental Status Recovered: Yes Resp Rate: 14
--- NOTE | 2017-11-09 11:45 | OR ---
SURGEON: Godfrey Damon M.D. DATE OF PROCEDURE: 11/09/2017 OPEATION PERFORMED: Esophagogastroduodenoscopy with gastric and duodenal biopsy. PICKLE MAKER: Dr. Dia, PGY3. ANESTHESIA: MAC. [place] [employer] CLASSIFICATION: II. PREOPERATIVE DIAGNOSIS: Progressive heartburn with coffee-grounds emesis. POSTOPERATIVE DIAGNOSIS: Mild gastritis, no acute ulcerations. DESCRIPTION OF PROCEDURE: The patient was taken to the endoscopy room, positioned on the endoscopy table in the supine position. Time-out was called for appropriate identification of the patient and procedure. Monitored anesthesia care was provided. The bite block was placed between the patient's teeth. The gastroscope was inserted through the bite block into the oropharynx and advanced without difficulty through the esophagus and stomach into the duodenum where examination was carried out in a retrograde fashion. Duodenal biopsies were obtained. No acute ulcerations were noted within the duodenum. The gastroscope was withdrawn into the stomach, which does show mild gastritis. No acute ulcerations were noted. Biopsies of the antrum were obtained. The gastroscope was then retroflexed to visualize the proximal stomach. Again, no ulcerations were noted. The mucosa appears quite healthy. The gastroscope was then straightened and slowly withdrawn carefully visualizing the greater and lesser curvatures. No ulcerations were noted on either side. The GE junction was well defined and shows no acute ulcerations. The esophagus demonstrates good contractility. No mid or proximal lesions were identified. The vocal cords were briefly visualized as the scope was withdrawn and noted to move symmetrically. The gastroscope was then removed with the patient having tolerated the procedure well. She was taken to recovery room in stable condition. DEEJAY / PAT /[id number]
== END 2017-11-09 11:40 | disposition home or self-care (01) ==
LOC: MW.SDS 08:48
PROVIDERS: ATTEND Surgery
DX: K29.50 Unspecified chronic gastritis without bleeding (principal); F17.210 Nicotine dependence, cigarettes, uncomplicated; K21.9 Gastro-esophageal reflux disease without esophagitis; Z88.0 Allergy status to penicillin; Z79.899 Other long term (current) drug therapy; Z87.19 Personal history of other diseases of the digestive system
CPT/HCPCS: 43239; 81025; 88305; 88312; J2250; J3010; J7120; J2704

== ENCOUNTER 2019-12-02 14:59 | Emergency (ER) | payer BC ==
--- NOTE | 2019-12-02 15:31 | EDM.PDOC ---
ED HPI GENERAL MEDICAL PROBLEM - General Chief Complaint: ENT Problem Stated Complaint: STREP THROAT Time Seen by Provider: 12/02/19 15:20 Source of Information: Reports: Patient History Limitations: Reports: No Limitations - History of Present Illness INITIAL COMMENTS - FREE TEXT/NARRATIVE: HISTORY AND PHYSICAL: History of present illness: Patient is a 28-year-old female who presents to the ED today with concern of 1 to 2 days of a sore throat. Patient states she began noticing white patches on her throat yesterday. Patient states she has been taking Tylenol and ibuprofen and has had some relief of symptoms. Patient states she has been able to eat both solids and liquids but does have pain with swallowing. Patient denies any associated symptoms or any other symptoms or concerns. Patient denies fever, chills, chest pain, shortness of breath, or cough. Denies headache, neck stiff ness, change in vision, syncope, or near syncope. Denies nausea, vomiting, abdominal pain, diarrhea, constipation, or dysuria. Has not noted any blood in urine or stool. Patient has been eating and drinking appropriately. Review of systems: As per history of present illness and below otherwise all systems reviewed and negative. Past medical history: As per history of present illness and as reviewed below otherwise noncontributory. Surgical history: As per history of present illness and as reviewed below otherwise noncontributory. Social history: See social history for further information Family history: As per history of present illness and as reviewed below otherwise noncontributory. Physical exam: General: Patient is alert, oriented, and in no acute distress. Patient sitting comfortably on exam table. HEENT: Atraumatic, normocephalic, pupils equal and reactive bilaterally, negative for conjunctival pallor or scleral icterus, mucous membranes moist, TMs normal bilaterally, throat is erythematous with white exudate on tonsils bilaterally, uvula midline, neck supple, nontender, trachea midline. No drooling or trismus noted. No meningeal signs. No hot potato voice noted. Lungs: Clear to auscultation, breath sounds equal bilaterally, chest nontender. Heart: S1S2, regular rate and rhythm without overt murmur Abdomen: Soft, nondistended, nontender. Negative for masses or hepatosplenomegaly. Negative for costovertebral tenderness. Pelvis: Stable nontender. Genitourinary: Deferred. Rectal: Deferred. Skin: Intact, warm, dry. No lesions or rashes noted. Extremities: Atraumatic, negative for cords or calf pain. Neurovascular unremarkable. Neuro: Awake, alert, oriented. Cranial nerves II through XII unremarkable. Cerebellum unremarkable. Motor and sensory unremarkable throughout. Exam nonfocal. Notes: Patient states she has taken Keflex in the past without having any allergic reaction. Her reaction to penicillins she states is mild with a mild rash. Trying to minimize use of azithromycin due to current COV-ID 19 out break as there is a shortage of this antibiotic at this time. Discussed importance for follow-up with a primary care provider. Voices understanding and is agreeable to plan of care. Denies any further questions or concerns at this time. Diagnostics: None Therapeutics: None Prescription: Keflex Impression: Pharyngitis Plan: 1. Take medication as prescribed. You can alternate ibuprofen and Tylenol as directed for pain and discomfort. 2. Follow-up with a primary care provider as discussed. Return to the ED as needed and as discussed. Definitive disposition and diagnosis as appropriate pending reevaluation and review of above. Throat Pain Score (Numeric/FACES): 7 - Related Data Allergies Allergy/AdvReac Type Severity Reaction Status Date / Time Penicillins Allergy Hives Verified 12/02/19 15:14 Home Meds: Home Meds Dicyclomine [Bentyl] 1 cap PO ASDIRECTED PRN 06/14/18 [History] cephALEXin [Keflex] 500 mg PO BID 10 Days #20 cap 12/02/19 [Rx] Past Medical History - Past Health History Medical/Surgical History: Denies Medical/Surgical History HEENT History: Reports: Other (See Below) Other HEENT History: wears glasses/contacts Cardiovascular History: Reports: Heart Murmur, Other (See Below) Other Cardiovascular History: murmur as a child Gastrointestinal History: Reports: PUD Genitourinary History: Reports: Renal Calculus 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 Musculoskeletal History: Reports: Fracture Other Musculoskeletal History: hx fx arm - Infectious Disease History Infectious Disease History: Reports: Chicken Pox - Past Surgical History Head Surgeries/Procedures: Reports: None HEENT Surgical History: Reports: None Cardiovascular Surgical History: Reports: None GI Surgical History: Reports: Appendectomy, Cholecystectomy, EGD Female Surgical History: Reports: Section Social & Family History - Family History Family Medical History: Noncontributory - Tobacco Use Smoking Status *Q: Current Every Day Smoker Years of Tobacco use: 2 Packs/Tins Daily: 0.5 - Caffeine Use Caffeine Use: Reports: Coffee, Soda - Recreational Drug Use Recreational Drug Use: No ED ROS GENERAL - Review of Systems Review Of Systems: Comprehensive ROS is negative, except as noted in HPI. ED EXAM, GENERAL - Physical Exam Exam: See Below (see dictation) Course - Vital Signs Last Recorded V/S: Last Vital Signs Temp 97.6 F 12/02/19 15:12 Pulse 98 12/02/19 15:12 Resp 18 12/02/19 15:12 BP 134/79 12/02/19 15:12 Pulse Ox 98 12/02/19 15:12 Departure - Departure Time of Disposition: 15:28 Disposition: Home, Self-Care 01 Clinical Impression: Pharyngitis Qualifiers: Pharyngitis/tonsillitis etiology: unspecified etiology Qualified Code(s): J02.9 - Acute pharyngitis, unspecified - Discharge Information Prescriptions: cephALEXin [Keflex] 500 mg PO BID 10 Days #20 cap Referrals: Bubba Mullins MD [Primary Care Provider] - Additional Instructions: The following information is given to patients seen in the emergency department who are being discharged to home. This information is to outline your options for follow-up care. We provide all patients seen in our emergency department with a follow-up referral. The need for follow-up, as well as the timing and circumstances, are variable depending upon the specifics of your emergency department visit. If you don't have a primary care physician on staff, we will provide you with a referral. We always advise you to contact your personal physician following an emergency department visit to inform them of the circumstance of the visit and for follow-up with them and/or the need for any referrals to a consulting specialist. The emergency department will also refer you to a specialist when appropriate. This referral assures that you have the opportunity for follow-up care with a specialist. All of these measure are taken in an effort to provide you with optimal care, which includes your follow-up. Under all circumstances we always encourage you to contact your private physician who remains a resource for coordinating your care. When calling for follow-up care, please make the office aware that this follow-up is from your recent emergency room visit. If for any reason you are refused follow-up, please contact the [facility] Emergency Department at and asked to speak to the emergency department charge nurse. [facility] Primary Care [address] [place] [address] [facility] [address] [place] [id number] 1. Take medication as prescribed. You can alternate ibuprofen and Tylenol as directed for pain and discomfort. 2. Follow-up with a primary care provider as discussed. Return to the ED as needed and as discussed. Sepsis Event Note - Evaluation Sepsis Screening Result: No Definite Risk - Focused Exam Vital Signs: Vital Signs Temp Pulse Resp BP Pulse Ox 12/02/19 15:12 97.6 F 98 18 134/79 98 Date Exam was Performed: 12/02/19 Time Exam was Performed: 15:28
== END 2019-12-02 15:35 | disposition home or self-care (01) ==
LOC: MW.ED 14:59
DX: J02.9 Acute pharyngitis, unspecified (principal); F17.210 Nicotine dependence, cigarettes, uncomplicated; Z88.0 Allergy status to penicillin
CPT/HCPCS: 99282; 99283

== ENCOUNTER 2020-03-30 20:34 | Emergency (ER) | payer BC ==
[2020-03-30] MEDS ORDERED: Sodium Chloride 0.9% 1,000 ML IV ONE (20:50)
[2020-03-30] MEDS ORDERED: Ondansetron 4 MG/2 ML SDV IVPUSH ONE (20:50)
[2020-03-30] MEDS ORDERED: Morphine 2 MG/ML SYRINGE IVPUSH ONE (20:50)
--- NOTE | 2020-03-30 20:50 | EDM.PDOC ---
<Aayush Balderas E - Last Filed: 03/30/20 21:40> ED HPI GENERAL MEDICAL PROBLEM - General Chief Complaint: Abdominal Pain Stated Complaint: STOMACH PAIN Time Seen by Provider: 03/30/20 20:49 Source of Information: Reports: Patient History Limitations: Reports: No Limitations - History of Present Illness INITIAL COMMENTS - FREE TEXT/NARRATIVE: HISTORY AND PHYSICAL: History of present illness: Patient is a 29-year-old female who presents to the emergency room with complaints of right lower quadrant pain. She states the pain feels similar to when she had appendicitis (has had appendix removed since). Pain started around 2:00 this evening and radiates into her back.. She has tried [id number] ibuprofen without any relief. She denies any pelvic pain, vaginal bleeding or discharge stating she has a NuvaRing over the past 2 months. Patient denies any fever, chills, headache, change in vision, syncope or near syncope. Denies any chest pain, back pain, shortness of breath or cough. Denies any nausea, vomiting, diarrhea, constipation or dysuria. Has not noted any blood in urine or stool. Patient has been eating and drinking appropriately. Review of systems: As per history of present illness and below otherwise all systems reviewed and negative. Past medical history: As per history of present illness and as reviewed below otherwise no ncontributory. Surgical history: As per history of present illness and as reviewed below otherwise noncontributory. Social history: See social history for further information Family history: As per history of present illness and as reviewed below otherwise noncontributory. Physical exam: General: Well-developed and well-nourished 29-year-old female. Alert and oriented. Nontoxic-appearing and in no acute distress. HEENT: Atraumatic, normocephalic, pupils equal and reactive bilaterally, negative for conjunctival pallor or scleral icterus, mucous membranes moist, TMs normal bilaterally, throat clear, neck supple, nontender, trachea midline. No drooling or trismus noted. No meningeal signs. No hot potato voice noted. Lungs: Clear to auscultation, breath sounds equal bilaterally, chest nontender. Heart: S1S2, regular rate and rhythm without overt murmur Abdomen: Soft, nondistended, nontender. Negative for masses or hepatosplenomegaly. Negative for costovertebral tenderness. Skin: Intact, warm, dry. No lesions or rashes noted. Extremities: Atraumatic, moves all extremities per self without difficulty or deficits, negative for cords or calf pain. Neurovascular unremarkable. Neuro: Awake, alert, oriented. Cranial nerves II through XII unremarkable. Cerebellum unremarkable. Motor and sensory unremarkable throughout. Exam nonfocal. Notes: Lab shows UTI. Concerned for possible kidney stone. CT results are pending. Dr Sneed will follow on the CT report and disposition appropriately. Diagnostics: CBC, CMP, UA, HCGU, CT abd/pelvis Therapeutics: NS, Morphine, Zofran Impression: UTI Definitive disposition and diagnosis as appropriate pending reevaluation and review of above. Onset: Today right abd Pain Score (Numeric/FACES): 9 - Related Data Allergies Allergy/AdvReac Type Severity Reaction Status Date / Time Penicillins Allergy Hives Verified 03/30/20 20:40 Home Meds: Home Meds Dicyclomine [Bentyl] 1 cap PO ASDIRECTED PRN 06/14/18 [History] Ethinyl Estradiol/Etonogestrel [Nuvaring Vaginal Ring] 1 each 03/30/20 [History] Hydrocodone/Acetaminophen [[place] 10-325 Tablet] 1 each PO Q6H PRN #14 tablet 03/30/20 [Rx] Sulfamethoxazole/Trimethoprim [Bactrim Ds Tablet] 1 each PO BID #20 tablet 03/30/20 [Rx] Past Medical History - Past Health History Medical/Surgical History: Denies Medical/Surgical History HEENT History: Reports: Other (See Below) Other HEENT History: wears glasses/contacts Cardiovascular History: Reports: Heart Murmur, Other (See Below) Other Cardiovascular History: murmur as a child Gastrointestinal History: Reports: PUD Genitourinary History: Reports: Renal Calculus 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 Musculoskeletal History: Reports: Fracture Other Musculoskeletal History: hx fx arm - Infectious Disease History Infectious Disease History: Reports: Chicken Pox - Past Surgical History Head Surgeries/Procedures: Reports: None HEENT Surgical History: Reports: None Cardiovascular Surgical History: Reports: None GI Surgical History: Reports: Appendectomy, Cholecystectomy, EGD Female Surgical History: Reports: Section Social & Family History - Family History Family Medical History: Noncontributory - Tobacco Use Smoking Status *Q: Current Every Day Smoker Years of Tobacco use: 3 Packs/Tins Daily: 1 - Caffeine Use Caffeine Use: Reports: Coffee - Recreational Drug Use Recreational Drug Use: No ED ROS GENERAL - Review of Systems Review Of Systems: Comprehensive ROS is negative, except as noted in HPI. ED EXAM, GI/ABD - Physical Exam Exam: See Below (See dictation) Departure - Departure Disposition: Home, Self-Care 01 Clinical Impression: Ureter colic, Ureteral stone Urinary tract infection Qualifiers: Urinary tract infection type: acute cystitis Hematuria presence: with hematuria Qualified Code(s): N30.01 - Acute cystitis with hematuria - Discharge Information Prescriptions: Sulfamethoxazole/Trimethoprim [Bactrim Ds Tablet] 1 each PO BID #20 tablet Hydrocodone/Acetaminophen [[place] 10-325 Tablet] 1 each PO Q6H PRN #14 tablet PRN Reason: Abdominal Pain Instructions: Kidney Stones, [id number], Urinary Tract Infection, Adult, [id number] Referrals: PCP,None [Primary Care Provider] - Forms: ED Department Discharge Additional Instructions: Increase fluids Use ibuprofen or naproxen for pain Vomiting or high fever or terribly sick or weak you need to return for IV antibiotics The following information is given to patients seen in the emergency department who are being discharged to home. This information is to outline your options for follow-up care. We provide all patients seen in our emergency department with a follow-up referral. The need for follow-up, as well as the timing and circumstances, are variable depending upon the specifics of your emergency department visit. If you don't have a primary care physician on staff, we will provide you with a referral. We always advise you to contact your personal physician following an emergency department visit to inform them of the circumstance of the visit and for follow-up with them and/or the need for any referrals to a consulting specialist. The emergency department will also refer you to a specialist when appropriate. This referral assures that you have the opportunity for follow-up care with a specialist. All of these measure are taken in an effort to provide you with optimal care, which includes your follow-up. Under all circumstances we always encourage you to contact your private physician who remains a resource for coordinating your care. When calling for follow-up care, please make the office aware that this follow-up is from your recent emergency room visit. If for any reason you are refused follow-up, please contact the [facility] Emergency Department at and asked to speak to the emergency department charge nurse. [facility] - Urology [address] [place] [address] [facility] - Primary Care [address], [place] [address] [facility] [address] [place] [id number] Sepsis Event Note (ED) - Evaluation Sepsis Screening Result: No Definite Risk <David Sneed - Last Filed: 03/30/20 22:39> Course - Vital Signs Last Recorded V/S: Last Vital Signs Temp 96.6 F L 03/30/20 20:42 Pulse 93 03/30/20 21:59 Resp 20 03/30/20 21:59 BP 145/93 H 03/30/20 21:59 Pulse Ox 100 03/30/20 21:59 - Orders/Labs/Meds Orders: Active Orders 24 hr Category Date Time Status CULTURE URINE [RM] Stat Lab 03/30/20 20:46 Received Labs: Laboratory Tests 03/30/20 03/30/20 03/30/20 Range/Units 20:46 20:46 20:46 WBC 9.38 (4.0-11.0) K/uL RBC 4.91 (4.30-5.90) M/uL Hgb 14.8 (12.0-16.0) g/dL Hct 43.2 (36.0-46.0) % MCV 88.0 (80.0-98.0) fL MCH 30.1 (27.0-32.0) pg MCHC 34.3 (31.0-37.0) g/dL RDW Std Deviation 39.7 (28.0-62.0) fl RDW Coeff of Clayton 12 (11.0-15.0) % Plt Count 270 (150-400) K/uL MPV 10.20 (7.40-12.00) fL Neut % (Auto) 54.3 (48.0-80.0) % Lymph % (Auto) 38.6 (16.0-40.0) % Graham % (Auto) 4.4 (0.0-15.0) % Eos % (Auto) 2.5 (0.0-7.0) % Baso % (Auto) 0.2 (0.0-1.5) % Neut # (Auto) 5.1 (1.4-5.7) K/uL Lymph # (Auto) 3.6 H (0.6-2.4) K/uL Graham # (Auto) 0.4 (0.0-0.8) K/uL Eos # (Auto) 0.2 (0.0-0.7) K/uL Baso # (Auto) 0.0 (0.0-0.1) K/uL Nucleated RBC % 0.0 /100WBC Nucleated RBCs # 0 K/uL Sodium (136-145) mmol/L Potassium (3.5-5.1) mmol/L Chloride (98-107) mmol/L Carbon Dioxide (21.0-32.0) mmol/L BUN (7.0-18.0) mg/dL Creatinine (0.6-1.0) mg/dL Est Cr Clr Drug Dosing mL/min Estimated GFR (MDRD) ml/min Glucose (74-106) mg/dL Calcium (8.5-10.1) mg/dL Total Bilirubin (0.2-1.0) mg/dL AST (15-37) IU/L ALT (14-63) IU/L Alkaline Phosphatase (46-116) U/L Total Protein (6.4-8.2) g/dL Albumin (3.4-5.0) g/dL Globulin (2.6-4.0) g/dL Albumin/Globulin Ratio (0.9-1.6) Urine Color YELLOW Urine Appearance SLT CLOUDY Urine pH 5.5 (5.0-8.0) Ur Specific [place] >= 1.030 (1.001-1.035) Urine Protein NEGATIVE (NEGATIVE) mg/dL Urine Glucose (UA) NEGATIVE (NEGATIVE) mg/dL Urine Ketones TRACE H (NEGATIVE) mg/dL Urine Occult Blood TRACE-INTACT H (NEGATIVE) Urine Nitrite NEGATIVE (NEGATIVE) Urine Bilirubin NEGATIVE (NEGATIVE) Urine Urobilinogen 0.2 (<2.0) EU/dL Ur Leukocyte Esterase TRACE H (NEGATIVE) Urine RBC 1-4 (0-2/HPF) Urine WBC 2-5 (0-5/HPF) Ur Epithelial Cells FEW (NONE-FEW) Urine Bacteria 1+ H (NEGATIVE) Urine HCG, Qual NEGATIVE (NEGATIVE) 03/30/20 Range/Units 20:46 WBC (4.0-11.0) K/uL RBC (4.30-5.90) M/uL Hgb (12.0-16.0) g/dL Hct (36.0-46.0) % MCV (80.0-98.0) fL MCH (27.0-32.0) pg MCHC (31.0-37.0) g/dL RDW Std Deviation (28.0-62.0) fl RDW Coeff of Clayton (11.0-15.0) % Plt Count (150-400) K/uL MPV (7.40-12.00) fL Neut % (Auto) (48.0-80.0) % Lymph % (Auto) (16.0-40.0) % Graham % (Auto) (0.0-15.0) % Eos % (Auto) (0.0-7.0) % Baso % (Auto) (0.0-1.5) % Neut # (Auto) (1.4-5.7) K/uL Lymph # (Auto) (0.6-2.4) K/uL Graham # (Auto) (0.0-0.8) K/uL Eos # (Auto) (0.0-0.7) K/uL Baso # (Auto) (0.0-0.1) K/uL Nucleated RBC % /100WBC Nucleated RBCs # K/uL Sodium 142 (136-145) mmol/L Potassium 3.8 (3.5-5.1) mmol/L Chloride 108 H (98-107) mmol/L Carbon Dioxide 24.0 (21.0-32.0) mmol/L BUN 16 (7.0-18.0) mg/dL Creatinine 1.1 H (0.6-1.0) mg/dL Est Cr Clr Drug Dosing 70.01 mL/min Estimated GFR (MDRD) 58.3 ml/min Glucose 87 (74-106) mg/dL Calcium 8.6 (8.5-10.1) mg/dL Total Bilirubin 0.2 (0.2-1.0) mg/dL AST 23 (15-37) IU/L ALT 32 (14-63) IU/L Alkaline Phosphatase 78 (46-116) U/L Total Protein 8.3 H (6.4-8.2) g/dL Albumin 3.9 (3.4-5.0) g/dL Globulin 4.4 H (2.6-4.0) g/dL Albumin/Globulin Ratio 0.9 (0.9-1.6) Urine Color Urine Appearance Urine pH (5.0-8.0) Ur Specific [place] (1.001-1.035) Urine Protein (NEGATIVE) mg/dL Urine Glucose (UA) (NEGATIVE) mg/dL Urine Ketones (NEGATIVE) mg/dL Urine Occult Blood (NEGATIVE) Urine Nitrite (NEGATIVE) Urine Bilirubin (NEGATIVE) Urine Urobilinogen (<2.0) EU/dL Ur Leukocyte Esterase (NEGATIVE) Urine RBC (0-2/HPF) Urine WBC (0-5/HPF) Ur Epithelial Cells (NONE-FEW) Urine Bacteria (NEGATIVE) Urine HCG, Qual (NEGATIVE) Meds: Medications Discontinued Medications Generic Name Dose Route Start Last Admin Trade Name Freq PRN Reason Stop Dose Admin Sodium Chloride 1,000 mls @ 999 mls/hr 03/30/20 20:50 03/30/20 20:56 Normal Saline IV 03/30/20 21:50 999 mls/hr STAT ONE Administration Ketorolac Tromethamine 30 mg 03/30/20 21:58 03/30/20 22:02 Toradol IVPUSH 03/30/20 21:59 30 mg ONETIME ONE Administration Morphine Sulfate 2 mg 03/30/20 20:50 03/30/20 20:56 Morphine IVPUSH 03/30/20 20:51 2 mg ONETIME ONE Administration Ondansetron HCl 4 mg 03/30/20 20:50 03/30/20 20:56 Zofran IVPUSH 03/30/20 20:51 4 mg ONETIME ONE Administration Trimethoprim/Sulfamethoxazole 1 tab 03/30/20 22:32 Septra Ds PO 03/30/20 22:33 ONETIME ONE Departure - Departure Time of Disposition: 22:37 Condition: Good Sepsis Event Note (ED) - Focused Exam Vital Signs: Vital Signs Temp Pulse Resp BP Pulse Ox 03/30/20 21:59 93 20 145/93 H 100 03/30/20 20:42 96.6 F L 101 H 18 133/86 99
[2020-03-30 21:18] LABS: POTASSIUM,K 3.8 mmol/L (3.5-5.1)
[2020-03-30] MEDS ORDERED: Ketorolac 30 MG/ML SDV IVPUSH ONE (21:58)
--- NOTE | 2020-03-30 22:15 | CT ---
INDICATION: Pain TECHNIQUE: CT abdomen and pelvis without contrast. COMPARISON: None FINDINGS: Lower chest: Unremarkable. Liver: Unremarkable. Spleen: Unremarkable. Pancreas: Unremarkable. Gallbladder and bile ducts: Cholecystectomy. Kidneys: 4 millimeter calculus proximal right ureter with moderate right hydronephrosis. Adrenal glands: Unremarkable. GI tract: Unremarkable. Vascular structures: Unremarkable. Lymph nodes: Unremarkable. Miscellaneous: Fat containing umbilical hernia. No free air or significant free fluid. Pelvic Organs: Unremarkable. Bones: Unremarkable for age. IMPRESSION: 4 millimeter calculus proximal right ureter with moderate hydronephrosis. Dictated by Shaheen Alicea MD @ 03/30/2020 10:13:02 PM Please note that all CT scans at this facility use dose modulation, iterative reconstruction, and/or weight-based dosing when appropriate to reduce radiation dose to as low as reasonably achievable. Dictated by: Shaheen Alicea MD @ 03/30/2020 22:13:12 (Electronically Signed)
[2020-03-30] MEDS ORDERED: Sulfamethoxazole/Trimethoprim 800-160 MG Tab PO ONE (22:32)
== END 2020-03-30 23:02 | disposition home or self-care (01) ==
LOC: MW.ED 20:34
DX: N30.01 Acute cystitis with hematuria (principal); N13.2 Hydronephrosis with renal and ureteral calculous obstruction; F17.210 Nicotine dependence, cigarettes, uncomplicated; Z88.0 Allergy status to penicillin; Z90.49 Acquired absence of other specified parts of digestive tract; Z98.890 Other specified postprocedural states
CPT/HCPCS: 36415; 74176; 80053; 81001; 81025; 85025; 87086; 87088; 87186; 96374; 96375; 99284; A9270; J1885; J2270; J2405; J7030; 99283

== ENCOUNTER 2020-04-02 16:13 | Emergency (ER) | payer BC ==
[2020-04-02] MEDS ORDERED: Sodium Chloride 0.9% 10 ML Syringe FLUSH PRN (16:50)
[2020-04-02] MEDS ORDERED: Ondansetron 4 MG/2 ML SDV IVPUSH ONE (16:50)
[2020-04-02] MEDS ORDERED: Sodium Chloride 0.9% 2.5 ML Syringe FLUSH PRN (16:50)
[2020-04-02] MEDS ORDERED: Ketorolac 15 MG/ML SDV IVPUSH ONE (16:50)
[2020-04-02] MEDS ORDERED: Sodium Chloride 0.9% 1,000 ML IV ONE (16:50)
[2020-04-02] MEDS ORDERED: cefTRIAXone 1 GM in Premix Bag 1 BAG IV ONE (16:50)
--- NOTE | 2020-04-02 16:58 | EDM.PDOC ---
ED HPI GENERAL MEDICAL PROBLEM - General Chief Complaint: Genitourinary Problem Stated Complaint: KIDNEY STONES Time Seen by Provider: 04/02/20 16:14 - History of Present Illness INITIAL COMMENTS - FREE TEXT/NARRATIVE: History of present illness: Patient presents with fever and chills after being diagnosed with kidney stone and UTI earlier this week. She followed up with her regular doctor today and is feeling worse so they sent her back to the ER. She has been on antibiotic she is taking Bactrim she denies any vomiting she has been nauseous she is able to hold fluids down her pain is not improved in her right flank she does not feel like the kidney stone is passing at all. She has not had any trouble with kidney stones in the past she denies dysuria the pain medicine she is taking at home seems to help but only for a brief amount of time. Otherwise there is no other symptoms such as cough trouble breathing chest pain no sore throat or runny nose. Review of systems: As per history of present illness and below otherwise all systems reviewed and negative. Past medical history: As per history of present illness and as reviewed below otherwise noncontributory. Surgical history: As per history of present illness and as reviewed below otherwise noncontributory. Social history: No reported history of drug or alcohol abuse. Family history: As per history of present illness and as reviewed below otherwise noncontributory. Physical exam: HEENT: Atraumatic, normocephalic, pupils reactive, negative for conjunctival pallor or scleral icterus, mucous membranes moist, throat clear, neck supple, nontender, trachea midline. Lungs: Clear to auscultation, breath sounds equal bilaterally, chest nontender. Heart: S1S2, regular, negative for clicks, rubs, or JVD. Abdomen: Soft, nondistended, nontender. Negative for masses or hepatosplenomegaly. Negative for costovertebral tenderness. Pelvis: Stable nontender. Genitourinary: There is some right CVA tenderness. Rectal: Deferred. Extremities: Atraumatic, negative for cords or calf pain. Neurovascular unremarkable. Neuro: Awake, alert, oriented. Cranial nerves II through XII unremarkable. Cerebellum unremarkable. Motor and sensory unremarkable throughout. Exam nonfocal. Diagnostics: [] Therapeutics: [] Impression: Kidney stone with urinary tract infection and fever [] Plan: Proceed some fluids and Rocephin while we obtain some labs admit her to the hospital for pyelonephritis and impacted infected stone. [] Definitive disposition and diagnosis as appropriate pending reevaluation and review of above. Right Flank Pain Score (Numeric/FACES): 7 - Related Data Allergies Allergy/AdvReac Type Severity Reaction Status Date / Time Penicillins Allergy Hives Verified 04/02/20 16:49 Home Meds: Home Meds Ethinyl Estradiol/Etonogestrel [Nuvaring Vaginal Ring] 1 each VAG ASDIRECTED 03/30/20 [History] Hydrocodone/Acetaminophen [Dawson 10-325 Tablet] 1 each PO Q6H PRN #14 tablet 03/30/20 [Rx] Sulfamethoxazole/Trimethoprim [Bactrim Ds Tablet] 1 each PO BID #20 tablet 03/30/20 [Rx] Past Medical History - Past Health History Medical/Surgical History: Denies Medical/Surgical History HEENT History: Reports: Other (See Below) Other HEENT History: wears glasses/contacts Cardiovascular History: Reports: Heart Murmur Other Cardiovascular History: murmur as a child Respiratory History: Reports: None Gastrointestinal History: Reports: PUD Genitourinary History: Reports: Renal Calculus 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 Musculoskeletal History: Reports: Fracture Other Musculoskeletal History: hx fx arm Neurological History: Reports: None Psychiatric History: Reports: None Endocrine/Metabolic History: Reports: None Hematologic History: Reports: None Immunologic History: Reports: None Dermatologic History: Reports: None - Infectious Disease History Infectious Disease History: Reports: None - Past Surgical History Head Surgeries/Procedures: Reports: None HEENT Surgical History: Reports: None Cardiovascular Surgical History: Reports: None GI Surgical History: Reports: Appendectomy, Cholecystectomy, EGD Female Surgical History: Reports: Section Social & Family History - Family History Family Medical History: Noncontributory - Tobacco Use Smoking Status *Q: Current Every Day Smoker Years of Tobacco use: 3 Packs/Tins Daily: 0.5 - Caffeine Use Caffeine Use: Reports: Coffee - Recreational Drug Use Recreational Drug Use: No ED ROS GENERAL - Review of Systems Review Of Systems: See Below ED EXAM, GENERAL - Physical Exam Exam: See Below Course - Vital Signs Text/Narrative:: Patient was reassessed she has an infected kidney stone and failed outpatient therapy I do not have urology at this facility this week. I discussed the case with Dr. Reyes at [place] and he will accept the patient there she is going to travel there for inpatient care and urology consultation. She received a gram Rocephin in the ED for her pyelonephritis and infected stone prior to departure. Last Recorded V/S: Last Vital Signs Temp 36.8 C 04/02/20 16:47 Pulse 91 04/02/20 17:56 Resp 15 04/02/20 17:56 BP 103/57 L 04/02/20 17:56 Pulse Ox 98 04/02/20 17:56 - Orders/Labs/Meds Orders: Active Orders 24 hr Category Date Time Status CULTURE URINE [RM] Stat Lab 04/02/20 16:33 Received Saline Lock Insert [OM.PC] Stat Oth 04/02/20 16:50 Ordered Labs: Laboratory Tests 04/02/20 04/02/20 04/02/20 Range/Units 16:33 16:45 16:45 WBC 9.70 (4.0-11.0) K/uL RBC 4.58 (4.30-5.90) M/uL Hgb 13.8 (12.0-16.0) g/dL Hct 40.0 (36.0-46.0) % MCV 87.3 (80.0-98.0) fL MCH 30.1 (27.0-32.0) pg MCHC 34.5 (31.0-37.0) g/dL RDW Std Deviation 40.0 (28.0-62.0) fl RDW Coeff of [place] 12 (11.0-15.0) % Plt Count 269 (150-400) K/uL MPV 10.10 (7.40-12.00) fL Neut % (Auto) 66.3 (48.0-80.0) % Lymph % (Auto) 25.6 (16.0-40.0) % [place] % (Auto) 6.4 (0.0-15.0) % Eos % (Auto) 1.5 (0.0-7.0) % Baso % (Auto) 0.2 (0.0-1.5) % Neut # (Auto) 6.4 H (1.4-5.7) K/uL Lymph # (Auto) 2.5 H (0.6-2.4) K/uL [place] # (Auto) 0.6 (0.0-0.8) K/uL Eos # (Auto) 0.2 (0.0-0.7) K/uL Baso # (Auto) 0.0 (0.0-0.1) K/uL Nucleated RBC % 0.0 /100WBC Nucleated RBCs # 0 K/uL Sodium 136 (136-145) mmol/L Potassium 3.2 L (3.5-5.1) mmol/L Chloride 103 (98-107) mmol/L Carbon Dioxide 22.4 (21.0-32.0) mmol/L BUN 10 (7.0-18.0) mg/dL Creatinine 1.0 (0.6-1.0) mg/dL Est Cr Clr Drug Dosing 65.06 mL/min Estimated GFR (MDRD) > 60.0 ml/min Glucose 72 L (74-106) mg/dL Calcium 8.6 (8.5-10.1) mg/dL Total Bilirubin 0.3 (0.2-1.0) mg/dL AST 30 (15-37) IU/L ALT 31 (14-63) IU/L Alkaline Phosphatase 81 (46-116) U/L Total Protein 8.7 H (6.4-8.2) g/dL Albumin 3.7 (3.4-5.0) g/dL Globulin 5.0 H (2.6-4.0) g/dL Albumin/Globulin Ratio 0.7 L (0.9-1.6) Urine Color YELLOW Urine Appearance SLT CLOUDY Urine pH 6.5 (5.0-8.0) Ur Specific [place] 1.010 (1.001-1.035) Urine Protein NEGATIVE (NEGATIVE) mg/dL Urine Glucose (UA) NEGATIVE (NEGATIVE) mg/dL Urine Ketones NEGATIVE (NEGATIVE) mg/dL Urine Occult Blood MODERATE H (NEGATIVE) Urine Nitrite NEGATIVE (NEGATIVE) Urine Bilirubin NEGATIVE (NEGATIVE) Urine Urobilinogen 0.2 (<2.0) EU/dL Ur Leukocyte Esterase SMALL H (NEGATIVE) Urine RBC 1-2 (0-2/HPF) Urine WBC 1-2 (0-5/HPF) Ur Epithelial Cells OCCASIONAL (NONE-FEW) Urine Bacteria 1+ H (NEGATIVE) Meds: Medications Discontinued Medications Generic Name Dose Route Start Last Admin Trade Name Freq PRN Reason Stop Dose Admin Ceftriaxone Sodium/Dextrose 1 50 mls @ 100 mls/hr 04/02/20 16:50 04/02/20 17:11 gm/ Premix IV 04/02/20 17:19 100 mls/hr ONETIME ONE Administration Sodium Chloride 1,000 mls @ 999 mls/hr 04/02/20 16:50 04/02/20 17:11 Normal Saline IV 04/02/20 17:50 999 mls/hr .Bolus ONE Administration Ketorolac Tromethamine 30 mg 04/02/20 16:50 04/02/20 17:10 Toradol IVPUSH 04/02/20 16:51 30 mg ONETIME ONE Administration Ondansetron HCl 4 mg 04/02/20 16:50 04/02/20 17:10 Zofran IVPUSH 04/02/20 16:51 4 mg ONETIME ONE Administration Sodium Chloride 10 ml 04/02/20 16:50 04/02/20 17:11 Saline Flush FLUSH 10 ml ASDIRECTED PRN Administration Keep Vein Open Sodium Chloride 2.5 ml 04/02/20 16:50 04/02/20 17:11 Saline Flush FLUSH 2.5 ml ASDIRECTED PRN Administration Keep Vein Open Departure - Departure Time of Disposition: 17:30 Disposition: DC/Tfer to [facility] 02 Clinical Impression: Renal calculus - Discharge Information *PRESCRIPTION DRUG MONITORING PROGRAM REVIEWED*: Not Applicable *COPY OF PRESCRIPTION DRUG MONITORING REPORT IN PATIENT NAVA: Not Applicable Referrals: Sandrine Whiting NP [Primary Care Provider] - Forms: ED Department Discharge Sepsis Event Note (ED) - Evaluation Sepsis Screening Result: No Definite Risk - Focused Exam Vital Signs: Vital Signs Temp Pulse Resp BP Pulse Ox 04/02/20 17:56 91 15 103/57 L 98 04/02/20 16:47 36.8 C 93 18 112/64 96 - My Orders Last 24 Hours: My Active Orders 04/02/20 16:33 CULTURE URINE [RM] Stat 04/02/20 16:50 Saline Lock Insert [OM.PC] Stat - Assessment/Plan Last 24 Hours: My Active Orders 04/02/20 16:33 CULTURE URINE [RM] Stat 04/02/20 16:50 Saline Lock Insert [OM.PC] Stat
[2020-04-02 17:14] LABS: BLOOD UREA NITROGEN,BUN 10 mg/dL (7.0-18.0); CARBON DIOXIDE,CO2 22.4 mmol/L (21.0-32.0); CHLORIDE,CL 103 mmol/L (98-107); GLUCOSE RANDOM 72 mg/dL (74-106); POTASSIUM,K 3.2 mmol/L (3.5-5.1); SODIUM,NA 136 mmol/L (136-145)
== END 2020-04-02 18:14 ==
LOC: MW.ED 16:13
DX: N20.0 Calculus of kidney (principal); F17.210 Nicotine dependence, cigarettes, uncomplicated; Z88.0 Allergy status to penicillin
CPT/HCPCS: 36415; 80053; 81001; 85025; 87086; 96365; 96375; 99285; J0696; J1885; J2405; J7030; 99284

== ENCOUNTER 2021-01-29 05:50 | Emergency (ER) | payer BC ==
[2021-01-29] MEDS ORDERED: Sodium Chloride 0.9% 2.5 ML Syringe FLUSH PRN (06:19)
[2021-01-29] MEDS ORDERED: Sodium Chloride 0.9% 10 ML Syringe FLUSH PRN (06:19)
[2021-01-29] MEDS ORDERED: Lactated Ringers 1,000 ML IV ONE (06:20)
[2021-01-29] MEDS ORDERED: Sodium Chloride 0.9% 1,000 ML IV ONE (06:23)
--- NOTE | 2021-01-29 06:27 | EDM.PDOC ---
<Mitch,Jayden - Last Filed: 01/29/21 06:35> ED HPI GENERAL MEDICAL PROBLEM - General Chief Complaint: Respiratory Problem Stated Complaint: PNEUMONIA Time Seen by Provider: 01/29/21 06:15 - History of Present Illness INITIAL COMMENTS - FREE TEXT/NARRATIVE: 30-year-old female denies past medical history has not had a Covid vaccinations who is presenting with 4 days of cough and shortness of breath and 1 day of constant left upper back pain. Associated with subjective fevers and chills but no measured temperature. She denies nausea or vomiting she denies diarrhea. She endorses shortness of breath she denies recent travel she denies sick contacts. No exacerbating alleviating factors radiation or other associated symptoms. - Related Data Allergies Allergy/AdvReac Type Severity Reaction Status Date / Time Penicillins Allergy Hives Verified 01/29/21 06:17 Home Meds: Home Meds Azithromycin [Zithromax] 250 mg PO DAILY #4 tablet 01/29/21 [Rx] Ibuprofen 600 mg PO Q6HR PRN #30 tablet 01/29/21 [Rx] Past Medical History - Past Health History Medical/Surgical History: Denies Medical/Surgical History HEENT History: Reports: Other (See Below) Other HEENT History: wears glasses/contacts Cardiovascular History: Reports: Heart Murmur Other Cardiovascular History: murmur as a child Respiratory History: Reports: None Gastrointestinal History: Reports: PUD Genitourinary History: Reports: Renal Calculus 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 Musculoskeletal History: Reports: Fracture Other Musculoskeletal History: hx fx arm Neurological History: Reports: None Psychiatric History: Reports: None Endocrine/Metabolic History: Reports: None Hematologic History: Reports: None Immunologic History: Reports: None Dermatologic History: Reports: None - Infectious Disease History Infectious Disease History: Reports: None - Past Surgical History Head Surgeries/Procedures: Reports: None HEENT Surgical History: Reports: None Cardiovascular Surgical History: Reports: None GI Surgical History: Reports: Appendectomy, Cholecystectomy, EGD Female Surgical History: Reports: Section Social & Family History - Family History Family Medical History: No Pertinent Family History - Tobacco Use Tobacco Use Status *Q: Never Tobacco User - Caffeine Use Caffeine Use: Reports: Coffee - Recreational Drug Use Recreational Drug Use: No ED ROS GENERAL - Review of Systems Review Of Systems: See Below Free Text/Narrative/Comment: General: Per HPI Eyes: No vision problems. ENT: No sore throat. Neck: No neck stiffness. Respiratory: Per HPI Cardiac: No chest pain. Gastrointestinal: No nausea, vomiting or abdominal pain. Musculoskeletal: No myalgias/arthralgias. Neurologic: No headache. ED EXAM, GENERAL - Physical Exam Exam: See Below Free Text/Narrative:: General Appearance: No acute distress, appears comfortable Skin: No rash HEENT: Normocephalic/atraumatic, sclera anicteric, mucous membranes moist Neck: Normal range of motion Chest and Lungs: Bilateral breath sounds, clear to auscultation Cardiovascular: Tachycardic rate regular rhythm intact distal perfusion Abdomen: Soft, non-tender Back: Normal Musculoskeletal: No edema or tenderness Neurologic: Awake, alert, no obvious deficits, moving all extremities Psychiatric: Appropriate, cooperative #1 Interpretation EKG Date: 01/29/21 Time: 06:35 EKG Interpretation Comments: Sinus tachycardia rate of 115 some signs of RVH no acute ischemia QTC 458 Departure - Departure Disposition: Home, Self-Care 01 Clinical Impression: Bronchitis, Tobacco use, Pulmonary infection - Discharge Information Instructions: Smoking Tobacco Information, Adult, Upper Respiratory Infection, Adult, [id number] Referrals: Sandrine Whiting NP [Primary Care Provider] - Forms: ED Department Discharge Additional Instructions: You were seen and evaluated in the ER today secondary to cough and back pain. Although your tests are all normal, there is a possibility that this might be an early pneumonia. You will be started on a Z-Dixon to take. Please follow-up with your doctor in the next 1 to 2 days for reevaluation. The following information is given to patients seen in the emergency department who are being discharged to home. This information is to outline your options for follow-up care. We provide all patients seen in our emergency department with a follow-up referral. The need for follow-up, as well as the timing and circumstances, are variable depending upon the specifics of your emergency department visit. If you don't have a primary care physician on staff, we will provide you with a referral. We always advise you to contact your personal physician following an emergency department visit to inform them of the circumstance of the visit and for follow-up with them and/or the need for any referrals to a consulting specialist. The emergency department will also refer you to a specialist when appropriate. This referral assures that you have the opportunity for follow-up care with a specialist. All of these measure are taken in an effort to provide you with optimal care, which includes your follow-up. Under all circumstances we always encourage you to contact your private physician who remains a resource for coordinating your care. When calling for follow-up care, please make the office aware that this follow-up is from your recent emergency room visit. If for any reason you are refused follow-up, please contact the [facility] Emergency Department at and asked to speak to the emergency department charge nurse. [facility] - Primary Care [address] [place] [id number] [address] [id number] Sepsis Event Note (ED) - Evaluation Sepsis Screening Result: Possible Sepsis Risk - Assessment/Plan Assessment:: 30-year-old female presenting with cough subjective fever significant tachycardic. Pneumonia with sepsis is a consideration and will order labs including lactic acid ordered. PE to be considered as well and D-dimer sent. Covid was to be considered relevant swabs sent. ACS felt unlikely but given tachycardia EKG and troponin ordered. IV fluid will be started as well. Final treatment and disposition pending results of initial testing and patient signed out to Dr. Leo pending initial results further evaluation and treatment. <Darío Ureña - Last Filed: 01/29/21 08:03> ED HPI GENERAL MEDICAL PROBLEM - History of Present Illness INITIAL COMMENTS - FREE TEXT/NARRATIVE: 8 AM: Signout received at [address] Woodard. Patient presents to the ER today complaining of cough with yellow productive sputum, shortness of breath x1 day, left upper back pain with deep inspiration and cough, tactile fevers. Patient's chest x-ray does not reveal any pneumonia. Patient does have an elevated white count with a normal lactic acid and normal D-dimer. Given patient's presentation with a yellow productive sputum, she does smoke, with tactile fevers, this may be an early pneumonia. We will start patient on a Z-Dixon and have her follow-up with her doctor in the next 1 to 2 days. Patient's heart rate is down to 10 2-1 08 here in the ED. Patient has no history of DVT/PE. Patient has any family history of DVT/PE. Patient reports he does smoke. Patient is not on any control pills or HRT. Patient reports he is extremely active with no calf tenderness or swelling. Patient's physical exam is otherwise unremarkable. This patient was seen and evaluated during the 2019 SARS-CoV-2 novel coronavirus pandemic period. Community viral transmission is ongoing at time of this encounter and the emergency department is operating under pandemic response procedures. Constitutional: Patient is oriented to person, place, and time. Appears well- developed and well-nourished. No distress. HEENT: Moist mucous membranes Head: Normocephalic and atraumatic Eyes: Right eye exhibits no discharge. Left eye exhibits no discharge. No scleral icterus Neck: Normal range of motion. No tracheal deviation present. Cardiovascular: Normal rate and regular rhythm. Pulmonary: Effort normal, no respiratory distress. Abdominal: No distention Musculoskeletal: Normal range of motion Neurologic: Alert and oriented to person, place and time. Skin: [place], warm and dry. Psychiatric: Normal mood and affect. Behavior is normal. Judgment and thought content normal. Nursing note and vital signs have been reviewed Reassessment at the time of disposition demonstrates that the patient is in no acute distress. The patient has remained stable throughout the entire ED visit and is without objective evidence for acute process requiring urgent intervention or hospitalization. The patient is stable for discharge, counseling is provided as documented above, discussed symptomatic treatment and specific conditions for return. I have spoken with the patient/caregiver and discussed todays findings, in addition to providing specific details for the plan of care. Questions are answered and there is agreement with the plan. Course - Vital Signs Last Recorded V/S: Last Vital Signs Temp 97.4 F 01/29/21 06:14 Pulse 108 H 01/29/21 07:59 Resp 20 01/29/21 06:14 BP 125/74 01/29/21 06:14 Pulse Ox 99 01/29/21 07:59 - Orders/Labs/Meds Orders: Active Orders 24 hr Category Date Time Status EKG Documentation Completion [RC] STAT Care 01/29/21 06:19 Active Azithromycin [Zithromax] Med 01/29/21 07:58 Once 500 mg PO Q24H ONE Sodium Chloride 0.9% [Saline Flush] Med 01/29/21 06:19 Active 10 ml FLUSH ASDIRECTED PRN Sodium Chloride 0.9% [Saline Flush] Med 01/29/21 06:19 Active 2.5 ml FLUSH ASDIRECTED PRN Saline Lock Insert [OM.PC] Stat Oth 01/29/21 06:19 Ordered Medication Orders Azithromycin (Azithromycin 250 Mg Tab) 500 mg PO Q24H ONE Stop: 01/29/21 07:59 Sodium Chloride (Sodium Chloride 0.9% 10 Ml Syringe) 10 ml FLUSH ASDIRECTED PRN PRN Reason: Keep Vein Open Sodium Chloride (Sodium Chloride 0.9% 2.5 Ml Syringe) 2.5 ml FLUSH ASDIRECTED PRN PRN Reason: Keep Vein Open Labs: Laboratory Tests 01/29/21 01/29/21 01/29/21 Range/Units 06:05 06:05 06:35 WBC 15.86 H (4.0-11.0) K/uL RBC 4.70 (4.30-5.90) M/uL Hgb 14.0 (12.0-16.0) g/dL Hct 40.2 (36.0-46.0) % MCV 85.5 (80.0-98.0) fL MCH 29.8 (27.0-32.0) pg MCHC 34.8 (31.0-37.0) g/dL RDW Std Deviation 39.6 (28.0-62.0) fl RDW Coeff of [place] 13 (11.0-15.0) % Plt Count 256 (150-400) K/uL MPV 10.60 (7.40-12.00) fL Neut % (Auto) 74.9 (48.0-80.0) % Lymph % (Auto) 16.8 (16.0-40.0) % [place] % (Auto) 6.9 (0.0-15.0) % Eos % (Auto) 1.3 (0.0-7.0) % Baso % (Auto) 0.1 (0.0-1.5) % Neut # (Auto) 11.9 H (1.4-5.7) K/uL Lymph # (Auto) 2.7 H (0.6-2.4) K/uL [place] # (Auto) 1.1 H (0.0-0.8) K/uL Eos # (Auto) 0.2 (0.0-0.7) K/uL Baso # (Auto) 0.0 (0.0-0.1) K/uL Nucleated RBC % 0.0 /100WBC Nucleated RBCs # 0 K/uL D-Dimer, Quantitative (0.0-0.50) mg/L FEU Sodium 137 (136-145) mmol/L Potassium 4.0 (3.5-5.1) mmol/L Chloride 105 (98-107) mmol/L Carbon Dioxide 20.0 L (21.0-32.0) mmol/L BUN 14 (7.0-18.0) mg/dL Creatinine 0.8 (0.6-1.0) mg/dL Est Cr Clr Drug Dosing 80.59 mL/min Estimated GFR (MDRD) > 60.0 ml/min Glucose 117 H (74-106) mg/dL Lactic Acid (0.4-2.0) mmol/L Calcium 8.9 (8.5-10.1) mg/dL Total Bilirubin 0.4 (0.2-1.0) mg/dL AST 30 (15-37) IU/L ALT 49 (14-63) IU/L Alkaline Phosphatase 104 (46-116) U/L Troponin I < 0.050 (0.000-0.056) ng/mL Total Protein 7.9 (6.4-8.2) g/dL Albumin 3.6 (3.4-5.0) g/dL Globulin 4.3 H (2.6-4.0) g/dL Albumin/Globulin Ratio 0.8 L (0.9-1.6) SARS-CoV-2 RNA ([facility]ISCO) NEGATIVE (NEGATIVE) 01/29/21 01/29/21 Range/Units 06:35 06:35 WBC (4.0-11.0) K/uL RBC (4.30-5.90) M/uL Hgb (12.0-16.0) g/dL Hct (36.0-46.0) % MCV (80.0-98.0) fL MCH (27.0-32.0) pg MCHC (31.0-37.0) g/dL RDW Std Deviation (28.0-62.0) fl RDW Coeff of [place] (11.0-15.0) % Plt Count (150-400) K/uL MPV (7.40-12.00) fL Neut % (Auto) (48.0-80.0) % Lymph % (Auto) (16.0-40.0) % [place] % (Auto) (0.0-15.0) % Eos % (Auto) (0.0-7.0) % Baso % (Auto) (0.0-1.5) % Neut # (Auto) (1.4-5.7) K/uL Lymph # (Auto) (0.6-2.4) K/uL [place] # (Auto) (0.0-0.8) K/uL Eos # (Auto) (0.0-0.7) K/uL Baso # (Auto) (0.0-0.1) K/uL Nucleated RBC % /100WBC Nucleated RBCs # K/uL D-Dimer, Quantitative 0.23 (0.0-0.50) mg/L FEU Sodium (136-145) mmol/L Potassium (3.5-5.1) mmol/L Chloride (98-107) mmol/L Carbon Dioxide (21.0-32.0) mmol/L BUN (7.0-18.0) mg/dL Creatinine (0.6-1.0) mg/dL Est Cr Clr Drug Dosing mL/min Estimated GFR (MDRD) ml/min Glucose (74-106) mg/dL Lactic Acid 0.7 (0.4-2.0) mmol/L Calcium (8.5-10.1) mg/dL Total Bilirubin (0.2-1.0) mg/dL AST (15-37) IU/L ALT (14-63) IU/L Alkaline Phosphatase (46-116) U/L Troponin I (0.000-0.056) ng/mL Total Protein (6.4-8.2) g/dL Albumin (3.4-5.0) g/dL Globulin (2.6-4.0) g/dL Albumin/Globulin Ratio (0.9-1.6) SARS-CoV-2 RNA ([facility]IS[facility]) (NEGATIVE) Meds: Medications Generic Name Dose Route Start Last Admin Trade Name Radha PRN Reason Stop Dose Admin Azithromycin 500 mg 01/29/21 07:58 Azithromycin 250 Mg Tab PO 01/29/21 07:59 Q24H ONE Sodium Chloride 10 ml 01/29/21 06:19 Sodium Chloride 0.9% 10 Ml Syringe FLUSH ASDIRECTED PRN Keep Vein Open Sodium Chloride 2.5 ml 01/29/21 06:19 Sodium Chloride 0.9% 2.5 Ml Syringe FLUSH ASDIRECTED PRN Keep Vein Open Discontinued Medications Generic Name Dose Route Start Last Admin Trade Name Radha PRN Reason Stop Dose Admin Lactated Ringer's 1,000 mls @ 999 mls/hr 01/29/21 06:20 01/29/21 06:38 Ringers, Lactated IV 01/29/21 07:20 Not Given .BOLUS ONE Sodium Chloride 1,000 mls @ 999 mls/hr 01/29/21 06:23 01/29/21 06:43 Normal Saline IV 01/29/21 07:23 999 mls/hr .Bolus ONE Administration Departure - Departure Time of Disposition: 08:01 Condition: Good Sepsis Event Note (ED) - Focused Exam Vital Signs: Vital Signs Temp Pulse Resp BP Pulse Ox 01/29/21 07:59 108 H 99 01/29/21 06:14 97.4 F 130 H 20 125/74 100 - My Orders Last 24 Hours: My Active Orders 01/29/21 07:58 Azithromycin [Zithromax] 500 mg PO Q24H ONE - Assessment/Plan Last 24 Hours: My Active Orders 01/29/21 07:58 Azithromycin [Zithromax] 500 mg PO Q24H ONE
[2021-01-29 06:37] LABS: BLOOD UREA NITROGEN,BUN 14 mg/dL (7.0-18.0); CHLORIDE,CL 105 mmol/L (98-107); GLUCOSE RANDOM 117 mg/dL (74-106); SODIUM,NA 137 mmol/L (136-145)
--- NOTE | 2021-01-29 07:23 | CR ---
INDICATION: Pain. TECHNIQUE: Portable AP view of the chest. COMPARISON: 06/14/2018. FINDINGS: Normal cardiac, mediastinal and hilar contours. Normal pulmonary vasculature. Lungs are clear. No appreciable pleural fluid. No pneumothorax. Cholecystectomy clips are seen in the right upper quadrant. IMPRESSION: No radiographic signs of acute cardiopulmonary disease. Dictated by Donal Capps MD @ 01/29/2021 7:22:06 AM Dictated by: Donal Capps MD @ 01/29/2021 07:22:12 (Electronically Signed)
[2021-01-29] MEDS ORDERED: Azithromycin 250 MG Tab PO ONE (07:58)
== END 2021-01-29 08:30 | disposition home or self-care (01) ==
LOC: MW.ED 05:50
DX: J18.9 Pneumonia, unspecified organism (principal); J40 Bronchitis, not specified as acute or chronic; Z72.0 Tobacco use; Z88.0 Allergy status to penicillin; Z20.822 Contact with and (suspected) exposure to COVID-19
CPT/HCPCS: 36415; 71045; 80053; 83605; 84484; 85025; 85379; 87635; 93005; 99285; A9270; J7030; U0002

== ENCOUNTER 2022-04-09 08:33 | Day surgery (SDC) | payer BC ==
[~2022-04-09 08:33] MED LIST changes: -Lidocaine 2% 5 ML SDV ONE; -Midazolam 1 MG/ML 2 ML SDV ONE; -Propofol 200 MG/20 ML SDV ONE; +ceFAZolin 2 GM in Premix Bag 1 BAG IV ONE; -fentaNYL 100 MCG/2 ML SDV ONE
[2022-04-09] MEDS ORDERED: fentaNYL 50 MCG/ML SDV IVPUSH PRN (09:45)
[2022-04-09] MEDS ORDERED: HYDROmorphone 1 MG/ML Syringe IVPUSH PRN (09:45)
[2022-04-09] MEDS ORDERED: Naloxone 0.4 MG/ML SDV IVPUSH PRN (09:45)
[2022-04-09] MEDS ORDERED: Metoclopramide 10 MG/2 ML SDV IVPUSH PRN (09:45)
[2022-04-09] MEDS ORDERED: Albuterol 0.083% 2.5 MG/3 ML Neb Soln NEB PRN (09:45)
[2022-04-09] MEDS ORDERED: Ondansetron 4 MG/2 ML SDV IVPUSH PRN ×2 (09:45→11:51)
[2022-04-09] MEDS ORDERED: ceFAZolin 1 GM Vial ONE (09:57)
[2022-04-09] MEDS ORDERED: Bupivacaine 0.5% 30 ML SDV ONE (09:57)
[2022-04-09] MEDS ORDERED: fentaNYL 250 MCG/5 ML SDV ONE (10:02)
[2022-04-09] MEDS ORDERED: Propofol 200 MG/20 ML SDV ONE (10:02)
[2022-04-09] MEDS ORDERED: Ropivacaine 0.5% 5 MG/ML 30 ML SDV ONE (10:07)
[2022-04-09] MEDS ORDERED: fentaNYL 100 MCG/2 ML SDV ONE (10:55)
[2022-04-09] MEDS ORDERED: Ketorolac 30 MG/ML SDV ONE (11:22)
[2022-04-09] MEDS ORDERED: Ondansetron 4 MG/2 ML SDV ONE (11:22)
[2022-04-09] MEDS ORDERED: Rocuronium Bromide 50 MG/5 ML Syringe ONE ×2 (11:22)
[2022-04-09] MEDS ORDERED: Dexamethasone 4 MG/ML 5 ML MDV ONE (11:22)
[2022-04-09] MEDS ORDERED: HYDROmorphone 2 MG/ML Syringe ONE (11:45)
[2022-04-09] MEDS ORDERED: Morphine 4 MG/ML VIAL IVPUSH PRN (11:51)
[2022-04-09] MEDS ORDERED: Acetaminophen/HYDROcodone 325-5 MG Tab PO PRN (11:51)
[2022-04-09] MEDS ORDERED: Lactated Ringers 1,000 ML IV SCH (12:00)
== END 2022-04-09 14:25 | disposition home or self-care (01) ==
LOC: MW.SDS 08:33
PROVIDERS: ATTEND Surgery
DX: K43.9 Ventral hernia without obstruction or gangrene (principal); F41.1 Generalized anxiety disorder; F41.0 Panic disorder [episodic paroxysmal anxiety]; K21.9 Gastro-esophageal reflux disease without esophagitis; E55.9 Vitamin D deficiency, unspecified; F17.210 Nicotine dependence, cigarettes, uncomplicated; E66.9 Obesity, unspecified; Z88.0 Allergy status to penicillin; Z79.899 Other long term (current) drug therapy; Z90.49 Acquired absence of other specified parts of digestive tract; Z98.890 Other specified postprocedural states; Z68.35 Body mass index [BMI] 35.0-35.9, adult
CPT/HCPCS: 49560; 49568; 81025; J0131; J0690; J1100; J1170; J1790; J1885; J2704; J2795; J3010; J3490; J7120; C1781; J2405